=== PATIENT | male | born 1950 | race American Indian/Alaskan Native ===

== ENCOUNTER 2016-09-07 20:34 | Observation (INO) | payer MEDICAID ==
[2016-09-07 20:47] VITALS: BMI 29.5
--- NOTE | 2016-09-07 21:07 | ED PDOC ---
Arrival/HPI - General Chief Complaint: Shortness Of Breath Time Seen by Provider: 09/07/16 20:37 Historian: Patient - History of Present Illness Narrative History of Present Illness (Text): 09/07/16 21:07 Misael King is a 66 year old male, whose past medical history includes hyperlipidemia, who presents to the emergency department complaining of intermittent right-sided chest discomfort today. Patient also reports associated shortness of breath. Patient denies any family history of cardiac disease. Patient denies any history of tobacco abuse, ever, chills, abdominal pain, nausea, vomiting, diarrhea, back pain, neck pain, headache, dizziness, or any other complaints. PMD: Dr. Gaudencio Calero Time/Duration: Other (today) Symptom Onset: Gradual Symptom Course: Unchanged, Intermittent Activities at Onset: Rest, Light Context: Home Past Medical History - Provider Review Nursing Documentation Reviewed: Yes - Infectious Disease Hx of Infectious Diseases: None - Cardiac Hx Cardiac Disorders: Yes - Pulmonary Hx Respiratory Disorders: No - Neurological Hx Neurological Disorder: No - HEENT Hx HEENT Disorder: No - Renal Hx Renal Disorder: No - Endocrine/Metabolic Hx Endocrine Disorders: No - Hematological/Oncological Hx Blood Disorders: No - Integumentary Hx Dermatological Disorder: No - Musculoskeletal/Rheumatological Hx Musculoskeletal Disorders: Yes - Gastrointestinal Hx Gastrointestinal Disorders: No - Genitourinary/Gynecological Hx Genitourinary Disorders: No - Psychiatric Hx Psychophysiologic Disorder: No Hx Substance Use: No - Surgical History Hx Gastric Bypass Surgery: No - Anesthesia Hx Anesthesia: No Hx Anesthesia Reactions: No Hx Malignant Hyperthermia: No - Suicidal Assessment Feels Threatened In Home Enviroment: No Family/Social History - Physician Review Nursing Documentation Reviewed: Yes Family/Social History: No Known Family HX Smoking Status: Never Smoked Hx Alcohol Use: No Hx Substance Use: No Hx Substance Use Treatment: No Allergies/Home Meds Allergies/Adverse Reactions: Allergies No Known Allergies Allergy (Verified 08/17/15 17:35) Review of Systems - Physician Review All systems were reviewed & negative as marked: Yes - Review of Systems Constitutional: Normal. absent: Fevers Eyes: Normal ENT: Normal Respiratory: SOB. absent: Cough Cardiovascular: Chest Pain Gastrointestinal: Normal. absent: Abdominal Pain, Diarrhea, Nausea, Vomiting Genitourinary Male: Normal. absent: Dysuria, Frequency, Hematuria, Urinary Output Changes Musculoskeletal: Normal. absent: Back Pain, Neck Pain Skin: Normal. absent: Rash Neurological: Normal. absent: Headache, Dizziness Endocrine: Normal Hemo/Lymphatic: Normal Psychiatric: Normal Physical Exam Vital Signs Reviewed: Yes Vital Signs Temp Pulse Resp BP Pulse Ox 09/07/16 23:43 89 16 179/84 H 99 09/07/16 20:50 98.2 F 90 18 183/92 H 98 Temperature: Afebrile Blood Pressure: Hypertensive Pulse: Regular Respiratory Rate: Normal Appearance: Positive for: Well-Appearing, Non-Toxic, Comfortable Pain Distress: None Mental Status: Positive for: Alert and Oriented X 3 - Systems Exam Head: Present: Atraumatic, Normocephalic Pupils: Present: PERRL Extroacular Muscles: Present: EOMI Conjunctiva: Present: Normal Mouth: Present: Moist Mucous Membranes Neck: Present: Normal Range of Motion Respiratory/Chest: Present: Clear to Auscultation, Good Air Exchange. No: Respiratory Distress, Accessory Muscle Use Cardiovascular: Present: Regular Rate and Rhythm, Normal S1, S2. No: Murmurs Abdomen: Present: Normal Bowel Sounds. No: Tenderness, Distention, Peritoneal Signs Back: Present: Normal Inspection Upper Extremity: Present: Normal Inspection. No: Cyanosis, Edema Lower Extremity: Present: Normal Inspection. No: Edema Neurological: Present: GCS=15, CN II-XII Intact, Speech Normal Skin: Present: Warm, Dry, Normal Color. No: Rashes Psychiatric: Present: Alert, Oriented x 3, Normal Insight, Normal Concentration Medical Decision Making ED Course and Treatment: 09/07/16 21:07 Impression: 66 year old male complaining of intermittent right-sided chest discomfort and shortness of breath since this morning. Plan: -- EKG -- CXR -- Labs, cardiac enzymes -- Reassess and disposition Prior Visits: Notes and results from previous visits were reviewed. Progress Notes: Reviewed EKG, NSR at 93 bpm. Possible anterior infarct. Non-specific ST/T wave changes. 09/07/16 22:49 Reviewed radiology, CXR shows no active disease. 09/07/16 23:44 Case discussed with medical director occupational health electronic tester, who is aware and agrees with plan. Paged house physician. 09/07/16 23:[address] Gray, who is aware and agrees with plan. Accepts pt in to hospitalist service. Pt will go to Telemetry observation for chest pain. - Lab Interpretations Lab Results: 09/07/16 21:19 09/07/16 21:19 Lab Results 09/07/16 21:19: WBC 6.4, RBC 5.15, Hgb 14.5, Hct 42.5, MCV 82.5, MCH 28.2, MCHC 34.1, RDW 14.9 H, Plt Count 335, MPV 10.1 09/07/16 21:19: Sodium 139, Potassium 4.8, Chloride 99, Carbon Dioxide 31, Anion Gap 14, BUN 18, Creatinine 0.9, Est GFR ( Amer) > 60, Est GFR (Non- Af Amer) > 60, Random Glucose 122 H, Calcium 9.5, Total Bilirubin 0.7, AST 40, ALT 42, Alkaline Phosphatase 111, Lactate Dehydrogenase 491, Total Creatine Kinase 95, Troponin I < 0.01, Total Protein 8.3, Albumin 4.1, Globulin 4.2, Albumin/Globulin Ratio 1.0 L 09/07/16 21:19: PT 10.0, INR 0.93, APTT 25.7 I have reviewed the lab results: Yes - RAD Interpretation Radiology Orders: 09/07/16 21:08 CHEST PORTABLE [RAD] Stat Wellhead Pumper: ED Physician - EKG Interpretation Interpreted by ED Physician: Yes Type: 12 lead EKG - Medication Orders Current Medication Orders: Discontinued Medications Aspirin (Aspirin) 325 mg PO ONCE STA Stop: 09/07/16 23:40 Nitroglycerin (Nitro-Bid 2% Oint) 1 ea TOP ONCE STA Stop: 09/07/16 23:41 - Scribe Statement The provider has reviewed the documentation as recorded by the Yanna Lang Provider Attestation: All medical record entries made by the Yanna were at my direction and personally dictated by me. I have reviewed the chart and agree that the record accurately reflects my personal performance of the history, physical exam, medical decision making, and the department course for this patient. I have also personally directed, reviewed, and agree with the discharge instructions and disposition. Disposition/Present on Arrival - Present on Arrival Any Indicators Present on Arrival: No History of DVT/PE: No History of Uncontrolled Diabetes: No Urinary Catheter: No History of Decub. Ulcer: No History Surgical Site Infection Following: None - Disposition Have Diagnosis and Disposition been Completed?: Yes Diagnosis: Chest pain Disposition: HOSPITALIZED Disposition Time: 23:55 Patient Plan: Observation Condition: STABLE Discharge Instructions (ExitCare): Chest Pain (ED)
[2016-09-07 21:51] LABS: HEMATOCRIT 42.5 % (42.0-52.0); MEAN CELL VOLUME 82.5 fL (80.0-105.0); MEAN CORPUSCULAR HEMOGLOBIN 28.2 pg (25.0-35.0); MEAN CORPUSCULAR HGB CONC 34.1 g/dl (31.0-37.0); MEAN PLATELET VOLUME 10.1 fl (7.0-11.0); RED CELL DISTRIBUTION WIDTH 14.9 % (11.5-14.5); WHITE BLOOD COUNT 6.4 10^3/ul (4.5-11.0)
[2016-09-07 21:56] LABS: ALKALINE PHOSPHATASE 111 U/L (38-133); ALT/SGPT 42 U/L (7-56); AST/SGOT 40 U/L (15-59); BILIRUBIN,TOTAL 0.7 mg/dL (0.2-1.3); BLOOD UREA NITROGEN 18 mg/dL (7-21); CALCIUM 9.5 mg/dL (8.4-10.5); CARBON DIOXIDE 31 mmol/L (21-33); CHLORIDE 99 mmol/L (98-107); GFR AFRICAN-AMERICAN > 60; GLUCOSE,RANDOM 122 mg/dL (70-110); POTASSIUM 4.8 mmol/L (3.6-5.0); SODIUM 139 mmol/L (132-148); TOTAL PROTEIN 8.3 g/dL (5.8-8.3)
[2016-09-07 22:07] LABS: TROPONIN I < 0.01 ng/mL
[2016-09-07 22:14] LABS: INR 0.93 (0.93-1.08); PARTIAL THROMBOPLASTIN TIME 25.7 Seconds (23.7-30.8)
[2016-09-07] MEDS ORDERED: Nitroglycerin 2% Ointment Foilpak UD TOP STA (23:40)
--- NOTE | 2016-09-08 00:47 | CP.PCM.HP ---
<Ronald Singer - Last Filed: 09/08/16 00:41> History of Present Illness - History of Present Illness History of Present Illness: Ronald Singer D.O. PGY-1, Internal Medicine Resident, Night Float Admission CC: chest pain for 1 day 66 year old male with a PMH of urination problems secondary to pelvis fracture who presents to [facility] on 09/08/16 with complaints of chest pain since earlier today. Patient states that yesterday he had some discomfort which he states "is from my high cholesterol" and he went to lay down to feel better. Patient notes a similar sensation today but also noted shortness of breath and points to his right chest wall as the location. Patient states the pain is localized, mild, only comes when pressing down on the area, not attributed with any radiation to arms, jaw, not associated with nausea, vomiting, or other symptoms. PMH: as above PSH: pelvic fracture repair SH: denies smoking, social drinking mostly in his 20s, denies drug use FH: father had HTN, mother of natural causes Meds: reviewed Allergies: NKA Present on Admission - Present on Admission Any Indicators Present on Admission: No Review of Systems - Constitutional Constitutional: absent: Anorexia, Chills, Fever - EENT Eyes: absent: Blind Spots, Blurred Vision, Change in Vision Ears: absent: Decreased Hearing, Ear Discharge, Ear Pain Nose/Mouth/Throat: absent: Epistaxis, Nasal Congestion, Nasal Discharge - Cardiovascular Cardiovascular: Chest Pain, Dyspnea, Palpitations. absent: Diaphoresis - Respiratory Respiratory: Dyspnea. absent: Cough, Wheezing - Gastrointestinal Gastrointestinal: absent: Abdominal Pain, Constipation, Diarrhea, Nausea, Vomiting - Genitourinary Genitourinary: Difficulty Urinating - Musculoskeletal Musculoskeletal: absent: Abnormal Gait, Joint Swelling, Muscle Weakness - Integumentary Integumentary: absent: Pruritus, Rash, Sores - Neurological Neurological: absent: Abnormal Gait, Abnormal Hearing, Abnormal Movements Past Patient History - Infectious Disease Hx of Infectious Diseases: None - Past Social History Smoking Status: Never Smoked - CARDIAC Hx Cardiac Disorders: Yes - PULMONARY Hx Respiratory Disorders: No - NEUROLOGICAL Hx Neurological Disorder: No - HEENT Hx HEENT Problems: No - RENAL Hx Chronic Kidney Disease: No - ENDOCRINE/METABOLIC Hx Endocrine Disorders: No - HEMATOLOGICAL/ONCOLOGICAL Hx Blood Disorders: No - INTEGUMENTARY Hx Dermatological Problems: No - MUSCULOSKELETAL/RHEUMATOLOGICAL Hx Musculoskeletal Disorders: Yes - GASTROINTESTINAL Hx Gastrointestinal Disorders: No - GENITOURINARY/GYNECOLOGICAL Hx Genitourinary Disorders: No - PSYCHIATRIC Hx Psychophysiologic Disorder: No Hx Substance Use: No - SURGICAL HISTORY Hx Gastric Bypass Surgery: No - ANESTHESIA Hx Anesthesia: No Hx Anesthesia Reactions: No Hx Malignant Hyperthermia: No Meds Allergies/Adverse Reactions: Allergies Allergy/AdvReac Type Severity Reaction Status Date / Time No Known Allergies Allergy Verified 08/17/15 17:35 Physical Exam - Constitutional Additional comments: well developed, well nourished, pleasant Guayanese male in NAD - Head Exam Head Exam: ATRAUMATIC, NORMOCEPHALIC - Eye Exam Eye Exam: EOMI, PERRL. absent: Conjunctival injection, Scleral icterus - ENT Exam ENT Exam: Mucous Membranes Moist, Normal Oropharynx - Neck Exam Neck exam: Positive for: Full Rom. Negative for: Lymphadenopathy - Respiratory Exam Respiratory Exam: Clear to Auscultation Bilateral. absent: Rales, Rhonchi, Wheezes - Cardiovascular Exam Cardiovascular Exam: RRR, +S1, +S2. absent: Diastolic murmur, Gallop, Rubs, Systolic Murmur Additional comments: localized costochondral tenderness ~ribs 4-5 on right - GI/Abdominal Exam GI & Abdominal Exam: Normal Bowel Sounds, Soft. absent: Distended, Tenderness - Extremities Exam Extremities exam: Positive for: pedal pulses present. Negative for: calf tenderness, pedal edema, tenderness - Neurological Exam Neurological exam: Alert, CN II-XII Intact, Oriented x3 - Skin Skin Exam: Dry, Intact, Warm Results - Vital Signs Recent Vital Signs: Last Vital Signs Temp 98.2 F 09/07/16 20:50 Pulse 89 09/07/16 23:43 Resp 16 09/07/16 23:43 BP 179/84 H 09/07/16 23:43 Pulse Ox 99 09/07/16 23:43 - Labs Result Diagrams: 09/07/16 21:19 09/07/16 21:19 Assessment & Plan - Assessment and Plan (Free Text) Assessment: 66 year old male with a PMH of urination problems secondary to pelvis fracture who presents with complaints of chest pain since earlier today. Plan: 1. Chest pain Costochrondritis vs cardiac vs other etiology CXR reviewed by me, no appearance of infiltrate, pneumothorax or effusion Labs reviewed Trops negative x1, will trend Lipid panel ordered Vitals q4h Repeat EKG in the AM Started motrin 800 q8 Will follow 2. Hx pelvis fracture Continue home neurontin DVT ppx: SCDs Patient was seen and examined at bedside and case was discussed at length with attending physician. - Date & Time Date: 09/08/16 Time: 12:10 <Regina Gray - Last Filed: 09/08/16 02:30> Results - Vital Signs Recent Vital Signs: Last Vital Signs Temp 97.9 F 09/08/16 00:34 Pulse 95 H 09/08/16 00:34 Resp 20 09/08/16 00:34 BP 139/89 09/08/16 02:21 Pulse Ox 99 09/07/16 23:43 - Labs Result Diagrams: 09/07/16 21:19 09/07/16 21:19 Attending/Attestation - Attestation I have personally seen and examined this patient.: Yes I have fully participated in the care of the patient.: Yes I have reviewed all pertinent clinical information: Yes Notes (Text): 09/08/16 02:29 Patient was seen when he was in bed # 4 in the ER. Agree with history , physical examination , assessment and plan.
[2016-09-08] MEDS ORDERED: DiphenhydrAMINE 50 mg/ml Inj IVP STA (02:38)
[2016-09-08 04:02] LABS: CHOLESTEROL 197 mg/dL (130-200)
[2016-09-08 04:44] LABS: TROPONIN I < 0.01 ng/mL
--- NOTE | 2016-09-08 07:21 | RAD ---
HISTORY: sob COMPARISON: Comparison is made to 08/17/2015 FINDINGS: LUNGS: No active pulmonary disease. PLEURA: No significant pleural effusion identified, no pneumothorax apparent. CARDIOVASCULAR: Normal. OSSEOUS STRUCTURES: No significant abnormalities. VISUALIZED UPPER ABDOMEN: Normal. OTHER FINDINGS: None. IMPRESSION: No active disease.
--- NOTE | 2016-09-08 09:32 | CARD ---
APPROVED REPORT EKG Measurement Heart [id number] <Conclusion> Normal sinus rhythm QS pattren V 1 - V 3 Possible ASMI, age unknown LVH by voltage
--- NOTE | 2016-09-08 10:23 | CARD ---
APPROVED REPORT EKG Measurement Heart [id number] <Conclusion> Normal sinus rhythm Cannot rule out Anterior infarct, age undetermined Abnormal ECG
--- NOTE | 2016-09-08 13:37 | CON ---
DATE: 09/08/2016 REASON FOR CONSULTATION: Dizziness and fall. The patient is a poor historian. The patient is a 66-year-old male who has a history of hyperlipidem ia, presented because of right-sided sharp chest discomfort as well as dizziness and a fall in front of his house at the sidewalk on his right knee. The patient denies any loss of consciousness. The p atient is unaware of any history of stroke or heart attack in the past. SOCIAL HISTORY: The patient is a nonsmoker. MEDICATIONS: Ibuprofen 800 mg q. 8 hours, Neurontin 300 mg t.i.d. REVIEW OF SYSTEMS: No nausea or vomiting, no fever or chills. PAST MEDICAL HISTORY: No history of heart attack or stroke in the past. PHYSICAL EXAMINATION: GENERAL: The patient is a middle-aged male who does not appear to be in any distress. VITAL SIGNS: Blood pressure /89, heart rate 97, temperature 98.1, respiration 20. HEENT: Normocephalic. NECK: No JVD. CHEST: Clear. HEART: S1, S2 regular. EXTREMITIES: No edema. EKG revealed sinus rhythm, cannot rule out old anterior wall myocardial infarction. LABORATORIES: SMA-7 is within normal limits except for glucose of 122. Three sets of troponins are negative. Lipid profile is within normal limits. CBC is within normal limits except for RDW of 14.9 . PT, PTT and D-dimer are within normal limits. ASSESSMENT: 1. Dizziness and a fall. 2. History of hyperlipidemia. RECOMMENDATIONS: Case was discussed with the emergency medical technician basic. The patient will be scheduled for head CT scan without contrast as well as an echocardiogram. Anthony Watkins MD cc: [id number] TT: 09/08/2016 13:36:44 Confirmation # [id number] Dictation # [id number]
--- NOTE | 2016-09-08 14:00 | CT ---
PROCEDURE: CT HEAD WITHOUT CONTRAST. HISTORY: Dizziness COMPARISON: 05/08/2013 TECHNIQUE: Axial computed tomography images were obtained through the head/brain without intravenous contrast. Radiation dose: Total exam DLP = 756 mGy-cm. This CT exam was performed using one or more of the following dose reduction techniques: Automated exposure control, adjustment of the mA and/or kV according to patient size, and/or use of iterative reconstruction technique. FINDINGS: HEMORRHAGE: No intracranial hemorrhage. BRAIN: No mass effect or edema. No atrophy or chronic microvascular ischemic changes. VENTRICLES: Unremarkable. No hydrocephalus. CALVARIUM: Unremarkable. PARANASAL SINUSES: Unremarkable as visualized. No significant inflammatory changes. MASTOID AIR CELLS: Unremarkable as visualized. No inflammatory changes. OTHER FINDINGS: None. IMPRESSION: Normal CT of the Head.
[2016-09-08 23:49] VITALS: TEMP 98
[2016-09-09 06:07] VITALS: O2SAT 94
[2016-09-09 12:47] VITALS: BP 127/98; RESP 20
--- NOTE | 2016-09-09 13:47 | CP.PCM.DIS ---
<Luis Huggins - Last Filed: 09/09/16 15:04> Provider - Provider Date of Admission: 09/07/16 23:55 Attending physician: Jung Grijalva MD Primary care physician: Zena Consults: Cardio: Roland Time Spent in preparation of Discharge (in minutes): 45 Hospital Course - Lab Results Lab Results: Most Recent Lab Values WBC 6.4 10^3/ul (4.5-11.0) 09/07/16 21:19 RBC 5.15 10^6/uL (3.5-6.1) 09/07/16 21:19 Hgb 14.5 gm/dL (14.0-18.0) 09/07/16 21:19 Hct 42.5 % (42.0-52.0) 09/07/16 21:19 MCV 82.5 fL (80.0-105.0) 09/07/16 21:19 MCH 28.2 pg (25.0-35.0) 09/07/16 21:19 MCHC 34.1 g/dl (31.0-37.0) 09/07/16 21:19 RDW 14.9 % (11.5-14.5) H 09/07/16 21:19 Plt Count 335 10^3/uL (120.0-450.0) 09/07/16 21:19 MPV 10.1 fl (7.0-11.0) 09/07/16 21:19 PT 10.0 Seconds (9.9-11.8) 09/07/16 21:19 INR 0.93 (0.93-1.08) 09/07/16 21:19 APTT 25.7 Seconds (23.7-30.8) 09/07/16 21:19 D-Dimer, Quantitative 0.23 mg/L FEU (0-0.50) 09/08/16 12:15 Sodium 139 mmol/L (132-148) 09/07/16 21:19 Potassium 4.8 mmol/L (3.6-5.0) 09/07/16 21:19 Chloride 99 mmol/L (98-107) 09/07/16 21:19 Carbon Dioxide 31 mmol/L (21-33) 09/07/16 21:19 Anion Gap 14 (10-20) 09/07/16 21:19 BUN 18 mg/dL (7-21) 09/07/16 21:19 Creatinine 0.9 mg/dL (0.5-1.4) 09/07/16 21:19 Est GFR ( Amer) > 60 09/07/16 21:19 Est GFR (Non-Af Amer) > 60 09/07/16 21:19 Random Glucose 122 mg/dL (70-110) H 09/07/16 21:19 Calcium 9.5 mg/dL (8.4-10.5) 09/07/16 21:19 Total Bilirubin 0.7 mg/dL (0.2-1.3) 09/07/16 21:19 AST 40 U/L (15-59) 09/07/16 21:19 ALT 42 U/L (7-56) 09/07/16 21:19 Alkaline Phosphatase 111 U/L (38-133) 09/07/16 21:19 Lactate Dehydrogenase 491 U/L (333-699) 09/07/16 21:19 Total Creatine Kinase 95 U/L (35-230) 09/07/16 21:19 Troponin I < 0.01 ng/mL 09/08/16 09:15 Total Protein 8.3 g/dL (5.8-8.3) 09/07/16 21:19 Albumin 4.1 g/dL (3.0-4.8) 09/07/16 21:19 Globulin 4.2 gm/dL 09/07/16 21:19 Albumin/Globulin Ratio 1.0 (1.1-1.8) L 09/07/16 21:19 Triglycerides 132 mg/dL (35-160) 09/08/16 03:30 Cholesterol 197 mg/dL (130-200) 09/08/16 03:30 LDL Cholesterol Direct 115 mg/dL (0-129) 09/08/16 03:30 HDL Cholesterol 38 mg/dL (29-60) 09/08/16 03:30 - Hospital Course Hospital Course: Upon Admission: 66yo M with PMHx of Pelvis fracture with secondary urinary problems here for evaluation of Chest pain. Chest pain is on the right side of the chest and is reproducible. Patient also c/o Dyspnea on exertion. ACS was ruled out with serial troponins. No EKG changes seen. D-dimer was negative. ECHO unremarkable. Patient also states that he had an episode of dizziness and fell a few weeks back. CT Head was done during this hospital stay and was unremarkable. Patient' s BP was elevated throughout his hospital stay, however, patient insisted that this was due to being in the hospital setting and states that he checks his BP regularly at home and it is within normal limits. Patient was recommended to keep a log of all his BP measurements at home and bring in to his PCP for further recommendations. Patient also states that he was given an unknown BP medication by his PCP, however, he does not take it as his BP is within normal limits at home. Patient agrees to follow up with his PMD within 3 days. 1. Atypical Chest Pain; ACS ruled out. D-dimer negative 2. Dizziness; CT head negative 3. Hx of Pelvic Fx; Continue out-patient pain management followup. Upon Discharge: Patient is cleared for discharge as per Dr. Grijalva 1. Follow up with your Primary care physician in 2-3 days 2. Keep a track of your BP readings at home and bring into your Primary Care Physician 3. Decrease dose of Gabapentin to 300mg PO BID. Follow PCP recs for further management 4. Follow up with your Pain management doctor 5. Follow up with Neurology. Call for appointment 6. Return to the ER with any concerning symptoms No New prescriptions Discharge Exam - Head Exam Head Exam: ATRAUMATIC, NORMAL INSPECTION, NORMOCEPHALIC - Eye Exam Eye Exam: EOMI, Normal appearance. absent: Scleral icterus - ENT Exam ENT Exam: Mucous Membranes Moist - Respiratory Exam Respiratory Exam: Clear to PA & Lateral, NORMAL BREATHING PATTERN, UNREMARKABLE. absent: Rales, Rhonchi, Wheezes, Respiratory Distress - Cardiovascular Exam Cardiovascular Exam: RRR, +S1, +S2. absent: JVD - GI/Abdominal Exam GI & Abdominal Exam: Normal Bowel Sounds, Unremarkable. absent: Distended, Firm , Guarding - Extremities Exam Extremities exam: normal inspection - Back Exam Back exam: NORMAL INSPECTION - Neurological Exam Neurological exam: Alert, Oriented x3 - Psychiatric Exam Psychiatric exam: Normal Affect, Normal Mood - Skin Skin Exam: Dry, Intact, Normal Color, Warm Discharge Plan - Follow Up Plan Condition: STABLE Disposition: HOME/ ROUTINE Instructions: Chest Pain (DC), Chest Pain (GEN) Additional Instructions: PT is cleared for discharge as per Dr. Grijalva 1. Follow up with your Primary care physician in 2-3 days 2. Keep a track of your BP readings at home and bring into your Primary Care Physician 3. Decrease dose of Gabapentin to 300mg PO BID. Follow PCP recs for further management 4. Follow up with your Pain management doctor 5. Follow up with Neurology. Call for appointment 6. Return to the ER with any concerning symptoms No New prescriptions Referrals: Isaiah Lane MD [Staff Provider] - <Jung Grijalva - Last Filed: 09/09/16 16:08> Provider - Provider Date of Admission: 09/07/16 23:55 Attending physician: Jung Grijalva MD Hospital Course - Lab Results Lab Results: Most Recent Lab Values WBC 6.4 10^3/ul (4.5-11.0) 09/07/16 21:19 RBC 5.15 10^6/uL (3.5-6.1) 09/07/16 21:19 Hgb 14.5 gm/dL (14.0-18.0) 09/07/16 21:19 Hct 42.5 % (42.0-52.0) 09/07/16 21:19 MCV 82.5 fL (80.0-105.0) 09/07/16 21:19 MCH 28.2 pg (25.0-35.0) 09/07/16 21:19 MCHC 34.1 g/dl (31.0-37.0) 09/07/16 21:19 RDW 14.9 % (11.5-14.5) H 09/07/16 21:19 Plt Count 335 10^3/uL (120.0-450.0) 09/07/16 21:19 MPV 10.1 fl (7.0-11.0) 09/07/16 21:19 PT 10.0 Seconds (9.9-11.8) 09/07/16 21:19 INR 0.93 (0.93-1.08) 09/07/16 21:19 APTT 25.7 Seconds (23.7-30.8) 09/07/16 21:19 D-Dimer, Quantitative 0.23 mg/L FEU (0-0.50) 09/08/16 12:15 Sodium 139 mmol/L (132-148) 09/07/16 21:19 Potassium 4.8 mmol/L (3.6-5.0) 09/07/16 21:19 Chloride 99 mmol/L (98-107) 09/07/16 21:19 Carbon Dioxide 31 mmol/L (21-33) 09/07/16 21:19 Anion Gap 14 (10-20) 09/07/16 21:19 BUN 18 mg/dL (7-21) 09/07/16 21:19 Creatinine 0.9 mg/dL (0.5-1.4) 09/07/16 21:19 Est GFR ( Amer) > 60 09/07/16 21:19 Est GFR (Non-Af Amer) > 60 09/07/16 21:19 Random Glucose 122 mg/dL (70-110) H 09/07/16 21:19 Calcium 9.5 mg/dL (8.4-10.5) 09/07/16 21:19 Total Bilirubin 0.7 mg/dL (0.2-1.3) 09/07/16 21:19 AST 40 U/L (15-59) 09/07/16 21:19 ALT 42 U/L (7-56) 09/07/16 21:19 Alkaline Phosphatase 111 U/L (38-133) 09/07/16 21:19 Lactate Dehydrogenase 491 U/L (333-699) 09/07/16 21:19 Total Creatine Kinase 95 U/L (35-230) 09/07/16 21:19 Troponin I < 0.01 ng/mL 09/08/16 09:15 Total Protein 8.3 g/dL (5.8-8.3) 09/07/16 21:19 Albumin 4.1 g/dL (3.0-4.8) 09/07/16 21:19 Globulin 4.2 gm/dL 09/07/16 21:19 Albumin/Globulin Ratio 1.0 (1.1-1.8) L 09/07/16 21:19 Triglycerides 132 mg/dL (35-160) 09/08/16 03:30 Cholesterol 197 mg/dL (130-200) 09/08/16 03:30 LDL Cholesterol Direct 115 mg/dL (0-129) 09/08/16 03:30 HDL Cholesterol 38 mg/dL (29-60) 09/08/16 03:30 Attending/Attestation - Attestation I have personally seen and examined this patient.: Yes I have fully participated in the care of the patient.: Yes I have reviewed all pertinent clinical information, including history, physical exam and plan: Yes Notes (Text): 09/09/16 16:02 66 year old male with past medical history of pelvic fracture and ?hypertension who presented with complaint of chest pain with dyspnea on exertion. He also complains of recent fall. He was admitted to telemetry unit. Serial cardiac enzymes were negative and ACS was ruled out. D-dimer and CXR were negative. He had an echocardiogram today which was reviewed by the chuck splitter. He also had a CT head which was negative. He was seen by PT and able to ambulate without complaints. He is discharged home today to follow up with his pmd. Taper gabapentin as per pmd/neurology as outpatient. Monitor BP at home. States he does want to start a antihypertension at this time because he takes a pill at home. Jung Grijalva MD Hospitalist.
[2016-09-09 14:13] VITALS: PULSE 96
--- NOTE | 2016-09-09 17:54 | CARD ---
APPROVED REPORT EXAM: Two-dimensional and M-mode echocardiogram with Doppler and color Doppler. INDICATION CP/LVFX 2D DIMENSIONS Left Atrium (2D)4.2 (1.6-4.0cm)IVSd1.4 (0.7-1.1cm) LVDd4.3 (3.9-5.9cm)PWd1.5 (0.7-1.1cm) LVDs3.0 (2.5-4.0cm)FS (%) 29.9 % LVEF (%)57.4 (>50%) M-Mode DIMENSIONS Aortic Root3.20 (2.2-3.7cm)Aortic Cusp Exc.2.10 (1.5-2.0cm) Aortic Valve AoV Peak Cjkybdfq039.0cm/Lea Peak GR.5mmHg Mitral Valve MV E Srnhpqxv29.8cm/sMV A Dmcehrfa10.0cm/sE/A ratio0.7 TDI Lateral E' Peak V6.43cm/sMedial E' Peak V3.80cm/sE/Lateral E'8.4 E/Medial E'14.2 Pulmonary Valve PV Peak Ftnnsati92.4cm/sPV Peak Grad.3mmHg Tricuspid Valve TR Peak [id number]/sRAP [id number] Peak Gr.25mmHg [id number] LEFT VENTRICLE The left ventricle is normal size. There is mild concentric left ventricular hypertrophy. The left ventricular function is normal. The left ventricular ejection fraction is within the normal range. There is normal LV segmental wall motion. RIGHT VENTRICLE The right ventricle is normal size. The right ventricular systolic function is normal. ATRIA The left atrium is mildly dilated. The right atrium size is normal. The interatrial septum is intact with no evidence for an atrial septal defect. AORTIC VALVE The aortic valve is normal in structure. No aortic regurgitation is present. There is no aortic valvular stenosis. MITRAL VALVE Mitral regurgitation is mild. Miild mitral valve prolapse is present. TRICUSPID VALVE The tricuspid valve is normal in structure. There is mild tricuspid regurgitation. PULMONIC VALVE The pulmonary valve is normal in structure. GREAT VESSELS The aortic root is normal in size. The IVC is normal in size and collapses >50% with inspiration. PERICARDIAL EFFUSION There is no pleural effusion. There is no pericardial effusion. <Conclusion> Dilated LA. Normal LV size and systolic function. Mild concentric LVH. Mild MVP seen. Mild MR.
== END 2016-09-09 16:05 | disposition home or self-care (01) ==
LOC: ED 20:34 → ERH 23:55 → 2RNO 09-08 01:16
PROVIDERS: ADMIT Internal Medicine; ATTEND Internal Medicine
DX: R07.89 Other chest pain (principal); E78.5 Hyperlipidemia, unspecified; R42 Dizziness and giddiness; Z82.49 Family history of ischemic heart disease and other diseases of the circulatory system; Z87.81 Personal history of (healed) traumatic fracture
CPT/HCPCS: 36415; 70450; 71010; 80053; 80061; 82550; 83615; 84484; 85027; 85378; 85610; 85730; 93005; 93306; 97116; 97162; 99285; G0378; G8978; G8979; G8980; J1200

== ENCOUNTER 2017-01-08 08:48 | Inpatient (IN) | payer MEDICAID ==
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
--- NOTE | 2017-01-08 11:57 | RAD ---
HISTORY: right sided chest pain COMPARISON: No prior. FINDINGS: LUNGS: No active pulmonary disease. PLEURA: No significant pleural effusion identified, no pneumothorax apparent. CARDIOVASCULAR: Mild cardiomegaly OSSEOUS STRUCTURES: No significant abnormalities. VISUALIZED UPPER ABDOMEN: Normal. OTHER FINDINGS: None. IMPRESSION: No active disease.
[2017-01-08 12:05] LABS: BASO # 0.02 K/mm3 (0.0-2.0); BASO % 0.3 % (0.0-3.0); EOS # 0.1 (0.0-0.7); EOS % 1.6 % (1.5-5.0); GRAN # 3.96 (1.4-6.5); GRAN % 59.4 % (50.0-68.0); HEMATOCRIT 40.6 % (42.0-52.0); LYMPH % 30.2 % (22.0-35.0); MEAN CELL VOLUME 85.3 fl (80.0-105.0); MEAN CORPUSCULAR HEMOGLOBIN 28.2 pg (25.0-35.0); MEAN PLATELET VOLUME 9.5 fl (7.0-11.0); MONO # 0.6 (0.1-0.6); MONO % 8.5 % (1.0-6.0); RED CELL DISTRIBUTION WIDTH 15.1 % (11.5-14.5); WHITE BLOOD COUNT 6.7 10^3/ul (4.5-11.0)
[2017-01-08 12:13] LABS: ALB/GLOB RATIO 0.9 (1.1-1.8); ALKALINE PHOSPHATASE 104 U/L (38-126); ALT/SGPT 29 U/L (7-56); AST/SGOT 91 U/L (17-59); BILIRUBIN,TOTAL 0.4 mg/dL (0.2-1.3); BLOOD UREA NITROGEN 10 mg/dL (7-21); CALCIUM 8.8 mg/dL (8.4-10.5); CARBON DIOXIDE 33 mmol/L (21-33); CHLORIDE 104 mmol/L (98-107); GFR AFRICAN-AMERICAN > 60; GLUCOSE,RANDOM 97 mg/dL (70-110); POTASSIUM 4.4 mmol/L (3.6-5.0); SODIUM 142 mmol/L (132-148); TOTAL PROTEIN 7.4 g/dL (5.8-8.3)
[2017-01-08 12:26] LABS: TROPONIN I 5.37 ng/mL
[2017-01-08] MEDS ORDERED: Enoxaparin 100 mg Syringe SC STA (13:14)
--- NOTE | 2017-01-08 13:26 | CARD ---
APPROVED REPORT EKG Measurement Heart [id number] <Conclusion> Normal sinus rhythm Septal infarct, age undetermined Abnormal ECG
[2017-01-08 16:15] VITALS: BMI 28.0
[2017-01-08] MEDS ORDERED: Pneumococcal 23-Valent Vaccine IM ONE (16:15)
[2017-01-08] MEDS ORDERED: Lidocaine 2% Inj (20ml) ONE (17:36)
[2017-01-08] MEDS ORDERED: Iohexol 350mgl/ml 50 ML ONE (17:36)
[2017-01-08] MEDS ORDERED: Iohexol 350 MG/100 ML VIAL ONE (17:36)
[2017-01-08] MEDS ORDERED: Midazolam 2 MG/2 ML VIAL ONE (17:37)
--- NOTE | 2017-01-08 17:45 | CP.PCM.HP ---
<Celina Silva - Last Filed: 01/08/17 21:04> History of Present Illness - History of Present Illness History of Present Illness: Celina Silva DO, PGY-1, Hospitalist Service 66 year old male black male with a past medical history of pelvic fractures and secondary urinary retention who presents with a chief complaint of 4 days of right gum pain and intermittent right sided chest pain. The patient presents with his daughter, and he is not the best historian. He defines one episode in which he woke up with pain in right chest and ipsilateral neck, jaw, nose, and ear pain. On further probing, his daughter notes that he has been getting more short of breath with activity. Otherwise, the pain he complains of does not improve or worsen in relation to activity, and the patient cannot recollect any alleviating or exacerbating factors. The pain, however, this time has gone on for an unprecedented amount of time, and therefore he came to the ED. PMD: Luther Freitas PMH: Pelic fractures, urinary retention PSH: Denied Family History: father had hypertension, mother of natural causes at age 92 Allergies: NKDA Social: Worked on a [employer], never smoked, drank moderately in the past, lives alone, is a . Present on Admission - Present on Admission Any Indicators Present on Admission: No Review of Systems - Constitutional Constitutional: As Per HPI Past Patient History - Infectious Disease Hx of Infectious Diseases: None - Past Social History Smoking Status: Never Smoked - CARDIAC Hx Cardiac Disorders: Yes - PULMONARY Hx Respiratory Disorders: No - NEUROLOGICAL Hx Neurological Disorder: No - HEENT Hx HEENT Problems: No - RENAL Hx Chronic Kidney Disease: No - ENDOCRINE/METABOLIC Hx Endocrine Disorders: No - HEMATOLOGICAL/ONCOLOGICAL Hx Blood Disorders: No - INTEGUMENTARY Hx Dermatological Problems: No - MUSCULOSKELETAL/RHEUMATOLOGICAL Hx Musculoskeletal Disorders: Yes - GASTROINTESTINAL Hx Gastrointestinal Disorders: No - GENITOURINARY/GYNECOLOGICAL Hx Genitourinary Disorders: No - PSYCHIATRIC Hx Psychophysiologic Disorder: No Hx Substance Use: No - SURGICAL HISTORY Hx Gastric Bypass Surgery: No - ANESTHESIA Hx Anesthesia: No Hx Anesthesia Reactions: No Hx Malignant Hyperthermia: No Meds Allergies/Adverse Reactions: Allergies Allergy/AdvReac Type Severity Reaction Status Date / Time No Known Allergies Allergy Verified 01/08/17 14:53 Physical Exam - Constitutional Appears: Non-toxic, No Acute Distress - Head Exam Head Exam: ATRAUMATIC, NORMOCEPHALIC Additional comments: cheeks have rash - Eye Exam Eye Exam: EOMI, Normal appearance, PERRL - ENT Exam ENT Exam: Mucous Membranes Moist, Normal Oropharynx - Neck Exam Neck exam: Positive for: Normal Inspection - Respiratory Exam Respiratory Exam: Clear to Auscultation Bilateral, NORMAL BREATHING PATTERN - Cardiovascular Exam Cardiovascular Exam: Tachycardia, +S1, +S2 - GI/Abdominal Exam GI & Abdominal Exam: Normal Bowel Sounds, Soft. absent: Distended, Guarding - Extremities Exam Extremities exam: Positive for: normal inspection. Negative for: calf tenderness, full ROM, pedal edema Additional comments: extremities were cold - Back Exam Back exam: NORMAL INSPECTION. absent: CVA tenderness (L), CVA tenderness (R) - Neurological Exam Neurological exam: Alert, CN II-XII Intact, Oriented x3 - Psychiatric Exam Psychiatric exam: Normal Affect, Normal Mood - Skin Skin Exam: Dry, Intact, Normal Color Results - Vital Signs Recent Vital Signs: Last Vital Signs Temp 98.2 F 01/08/17 15:51 Pulse 80 01/08/17 15:51 Resp 18 01/08/17 15:51 BP 144/85 01/08/17 15:51 Pulse Ox 99 01/08/17 09:05 - Labs Result Diagrams: 01/08/17 11:20 01/08/17 11:43 Assessment & Plan - Assessment and Plan (Free Text) Assessment: 66 year old black male with atypical chest pain found to have t-wave changes in V2-V4 and troponin I of 5.37. Plan: (N)STEMI: V2-V4 T-waves demonstrate elevation - Troponin 5.37 - CXR read as normal - Lipid panel ordered -TSH ordered - HgbA1c ordered - Aspirin, plavix, metoprolol 25 BID starting in morning - See ED note for initial medications given, including those pre-left heart catherization. -Dr. Long consulted, patient scheduled for left heart cath tonight - Date & Time Date: 01/08/17 Time: 15:00 <Jung Grijalva - Last Filed: 01/09/17 11:43> Results - Vital Signs Recent Vital Signs: Last Vital Signs Temp 98.2 F 01/09/17 05:52 Pulse 85 09/08/17 09:21 Resp 20 01/09/17 05:52 BP 153/86 H 01/09/17 09:21 Pulse Ox 97 01/09/17 05:52 - Labs Result Diagrams: 01/09/17 03:40 01/09/17 03:40 Labs: Laboratory Results - last 24 hr 01/08/17 01/09/17 01/09/17 21:10 03:40 03:40 WBC 6.2 RBC 4.24 Hgb 12.0 L Hct 36.0 L MCV 84.9 MCH 28.3 MCHC 33.3 RDW 15.2 H Plt Count 266 MPV 9.5 Gran % 63.5 Lymph % (Auto) 26.1 [place] % (Auto) 8.9 H Eos % (Auto) 1.3 L Baso % (Auto) 0.2 Gran # 3.93 Lymph # 1.6 [place] # 0.6 Eos # 0.1 Baso # 0.01 Sodium Potassium Chloride Carbon Dioxide Anion Gap BUN Creatinine Est GFR ( Amer) Est GFR (Non-Af Amer) Random Glucose Calcium Phosphorus Magnesium Total Bilirubin AST ALT Alkaline Phosphatase Lactate Dehydrogenase Total Creatine Kinase CK-MB (CK-2) CK-MB (CK-2) % Troponin I 16.70 H* D Total Protein Albumin Globulin Albumin/Globulin Ratio Triglycerides Cholesterol LDL Cholesterol Direct HDL Cholesterol TSH 3rd Generation 1.37 01/09/17 03:40 WBC RBC Hgb Hct MCV MCH MCHC RDW Plt Count MPV Gran % Lymph % (Auto) [place] % (Auto) Eos % (Auto) Baso % (Auto) Gran # Lymph # [place] # Eos # Baso # Sodium 138 Potassium 3.7 Chloride 103 Carbon Dioxide 30 Anion Gap 9 L BUN 9 Creatinine 0.8 Est GFR ( Amer) > 60 Est GFR (Non-Af Amer) > 60 Random Glucose 137 H Calcium 8.0 L Phosphorus 3.0 Magnesium 1.9 Total Bilirubin 0.3 AST 82 H ALT 27 Alkaline Phosphatase 91 Lactate Dehydrogenase 801 H Total Creatine Kinase 380 H CK-MB (CK-2) 11.8 H CK-MB (CK-2) % 3.1 H Troponin I 10.30 H* D Total Protein 6.4 Albumin 3.1 Globulin 3.3 Albumin/Globulin Ratio 0.9 L Triglycerides 173 H Cholesterol 202 H LDL Cholesterol Direct 150 H HDL Cholesterol 28 L TSH 3rd Generation Attending/Attestation - Attestation I have personally seen and examined this patient.: Yes I have fully participated in the care of the patient.: Yes I have reviewed all pertinent clinical information: Yes Notes (Text): 01/08/17 66 year old male with past medical history of pelvic fracture who presented with jaw pain and right sided chest pain. He was found to have mild ST elevations at V2-V4 and elevated troponin. Will admit for ACS. Aspirin, plavix and lovenox given. Will start statin and BB. Lipid panel and echo is ordered. Cardiology evaluation for cardiac cath today. Jung Grijalva MD Hospitalist.
[2017-01-08] MEDS ORDERED: Nitroglycerin 50mg in D5W 0 MG/0 ML BOTTLE IV ONE (17:51)
[2017-01-08] MEDS ORDERED: Phenylephrine 10 mg/ml Inj ONE (17:51)
[2017-01-08] MEDS ORDERED: Eptifibatide 20 mg/10mL Inj IVP ONE (18:13)
[2017-01-08] MEDS ORDERED: Sodium Chloride 0.9% 1,000 ML IV SCH (18:30)
--- NOTE | 2017-01-08 22:44 | CARDCATH ---
PROCEDURE DATE: 01/08/2017 HISTORY: This is a 66-year-old who presented to the emergency room with jaw discomfort. His pain eventually radiated to his right side of his chest, and electrocardiogram showed evidence of suspicious anterior ST-T changes. The troponin was drawn and was found to be nearly 6. Urgent catheterization was advised. INDICATIONS: Acute coronary syndrome and non-ST segment elevation myocardial infarction. PROCEDURES: 1. Selective left and right coronary angiography. 2. Left ventriculography. 3. PCI of mid LAD with drug-eluting stents. 4. Aspiration thrombectomy. 5. Right femoral arteriography. 6. Angio-Seal deployment. FINDINGS: Hemodynamics: The aortic pressure was 170/70 with left ventricular pressure of 170/16. CORONARY ANATOMY: 1. The left mainstem was normal. 2. The left anterior ascending artery had moderate irregularities proximally and 95% stenosis in the mid segment with evidence of thrombus beyond the lesion. The diagonal branch had evidence of moderate diffuse disease. 3. The left circumflex artery had mild irregularities. 4. The right coronary artery was largely dominant with mild irregularities. LEFT VENTRICULOGRAPHY: A left ventriculogram was performed in the GUAJARDO projection with hand injection only. This revealed moderate distal anterolateral an apical hypokinesis. Overall ejection fraction appeared to be 45%. CORONARY INTERVENTION: Total of 5000 units of heparin was administered and 3.5 EBU-guide catheter was utilized to cannulate the left coronary artery system. The lesion in the LAD was successfully crossed with the use of a [place] wire. Following this a thrombectomy catheter was advanced and multiple aspirations performed. There was moderate degree of thrombus recovered with aspiration. Following this, a 2.75 x 22 mm Resolute drug-eluting stent was advanced into the lesion and inflated to 12 atmospheres. There was MINA grade III flow following the intervention. MINA grade 3 flow was present at the end of the procedure. RIGHT FEMORAL ARTERIOGRAPHY: A right femoral arteriogram was performed revealing no evidence of significant disease and appropriate level of arterial punch. The puncture site was then closed with deployment of an Angio-Seal device. CONCLUSION: 1. Severe mid LAD stenosis. 2. Mildly reduced LV systolic function. 3. Successful PCI of mid LAD with drug-eluting stent as described above. RECOMMENDATIONS: Aspirin, Plavix, and beta-brett therapy will be initiated as well as KANDACE inhibitor. Serial enzymes and electrocardiograms will be obtained. Bertram Sharma MD [facility] # [id number] HARVEY
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
[2017-01-09 03:36] LABS: BASO # 0.01 K/mm3 (0.0-2.0); BASO % 0.2 % (0.0-3.0); EOS # 0.1 (0.0-0.7); EOS % 1.3 % (1.5-5.0); GRAN # 3.93 (1.4-6.5); GRAN % 63.5 % (50.0-68.0); LYMPH # 1.6 (1.2-3.4); LYMPH % 26.1 % (22.0-35.0); MEAN CELL VOLUME 84.9 fl (80.0-105.0); MEAN CORPUSCULAR HEMOGLOBIN 28.3 pg (25.0-35.0); MEAN CORPUSCULAR HGB CONC 33.3 g/dl (31.0-37.0); MEAN PLATELET VOLUME 9.5 fl (7.0-11.0); MONO # 0.6 (0.1-0.6); MONO % 8.9 % (1.0-6.0); RED CELL DISTRIBUTION WIDTH 15.2 % (11.5-14.5); WHITE BLOOD COUNT 6.2 10^3/ul (4.5-11.0)
[2017-01-09 04:01] LABS: ALB/GLOB RATIO 0.9 (1.1-1.8); ALKALINE PHOSPHATASE 91 U/L (38-126); ALT/SGPT 27 U/L (7-56); AST/SGOT 82 U/L (17-59); BILIRUBIN,TOTAL 0.3 mg/dL (0.2-1.3); BLOOD UREA NITROGEN 9 mg/dL (7-21); CARBON DIOXIDE 30 mmol/L (21-33); CHLORIDE 103 mmol/L (98-107); CHOLESTEROL 202 mg/dL (130-200); GFR AFRICAN-AMERICAN > 60; GLUCOSE,RANDOM 137 mg/dL (70-110); MAGNESIUM 1.9 mg/dL (1.7-2.2); POTASSIUM 3.7 mmol/L (3.6-5.0); SODIUM 138 mmol/L (132-148); TOTAL PROTEIN 6.4 g/dL (5.8-8.3)
[2017-01-09 05:52] VITALS: RESP 20
[2017-01-09] MEDS: Pantoprazole 40 mg EC Tab PO SCH (07:52)
--- NOTE | 2017-01-09 08:01 | CP.PCM.PN ---
<Celina Silva - Last Filed: 01/09/17 17:52> Subjective - Date & Time of Evaluation Date of Evaluation: 01/09/17 Time of Evaluation: 17:26 - Subjective Subjective: Celina Silva DO, PGY-1, Hospitalist Service Patient is resting comfortably in bed, easily aroused. No signs of distress noted. Right groin soft to touch with dry and intact pressure dressing. No ecchymosis, bruising, bleeding, swelling, hematoma to site. Pedal pulses palpable. No distress noted. Patient denies any pain/discomfort at this time. Objective - Vital Signs/Intake and Output Vital Signs (last 24 hours): Temp Pulse Resp BP Pulse Ox 98.2 F 93 H 20 128/82 97 01/09/17 05:52 01/09/17 05:52 01/09/17 05:52 01/09/17 05:52 01/09/17 05:52 Intake and Output: 01/09/17 01/09/17 06:59 18:59 Intake Total 1000 240 Output Total 200 Balance 1000 40 - Medications Medications: Current Medications Acetaminophen (Tylenol 325mg Tab) 650 mg PO Q6H PRN PRN Reason: Pain, Mild (1-3) Last Admin: 01/08/17 23:14 Dose: 650 mg Aspirin (Ecotrin) 81 mg PO DAILY [facility] Atorvastatin Calcium (Lipitor) 80 mg PO HS [facility] Last Admin: 01/08/17 21:28 Dose: 80 mg Clopidogrel Bisulfate (Plavix) 75 mg PO DAILY [facility] Docusate Sodium (Colace) 100 mg PO BID [facility] Lisinopril (Zestril) 5 mg PO DAILY [facility] Metoprolol Tartrate (Lopressor) 25 mg PO BID [facility] Pantoprazole Sodium (Protonix Ec Tab) 40 mg PO ACB [facility] Last Admin: 01/09/17 07:52 Dose: 40 mg Zolpidem Tartrate (Ambien) 5 mg PO HS PRN PRN Reason: Insomnia Last Admin: 01/08/17 21:28 Dose: 5 mg - Labs Labs: 01/09/17 03:40 01/09/17 03:40 - Constitutional Appears: Well, No Acute Distress - Head Exam Head Exam: ATRAUMATIC, NORMOCEPHALIC - Eye Exam Eye Exam: EOMI, Normal appearance, PERRL - ENT Exam ENT Exam: Mucous Membranes Moist, Normal Oropharynx - Neck Exam Neck Exam: Normal Inspection. absent: Lymphadenopathy - Respiratory Exam Respiratory Exam: Clear to Ausculation Bilateral, NORMAL BREATHING PATTERN. absent: Rales - Cardiovascular Exam Cardiovascular Exam: RRR, +S1, +S2 - GI/Abdominal Exam GI & Abdominal Exam: Soft, Normal Bowel Sounds. absent: Rigid, Pulsatile Mass, Rebound - Extremities Exam Extremities Exam: Normal Capillary Refill, Normal Inspection. absent: Pedal Edema - Back Exam Back Exam: NORMAL INSPECTION. absent: CVA tenderness (L), CVA tenderness (R) - Neurological Exam Neurological Exam: Alert, Awake, CN II-XII Intact, Oriented x3 Neuro motor strength exam: Left Upper Extremity: 5, Right Upper Extremity: 5, Left Lower Extremity: 5, Right Lower Extremity: 5 - Psychiatric Exam Psychiatric exam: Normal Affect, Normal Mood - Skin Skin Exam: Dry, Intact, Normal Color, Warm Assessment and Plan - Assessment and Plan (Free Text) Assessment: 66 year old male with past medical history of pelvic fracture who presented with jaw pain and right sided chest pain. He was found to have mild ST elevations at V2-V4 and elevated troponin. Admitted for ACS on telemetry. Plan: 1) NSTEMI - 95% stenosis in the mid-segment of the LAD s/p clot evacuation and placement of Resolute DAVIDA. - Aspirin 81, Plavix 75, Metoprolol Succinate 50, and Lisinopril 5 mg - Serial EKG ordered at 6:30 PM - Discussed with patient that he must remain on Plavix for one year, unless otherwise contraindicated. - Lipitor 80 mg HS - LDL was 150, HDL 28, Cholesterol 202, TG 173 - HgbA1c was 6.8 2) Previously un-identified risk factors: DM, Dyslipidemia, - Will field counsel patient on Diabetes, eating healthy, following up with PMD in this regard as well. 3) Post-cardiac cath precautions instituted per cardiology. <Israel LOYD,Juana - Last Filed: 01/10/17 12:56> Objective - Vital Signs/Intake and Output Vital Signs (last 24 hours): Temp Pulse Resp BP Pulse Ox 97.1 F L 74 20 103/59 L 97 01/10/17 12:00 01/10/17 12:00 01/10/17 12:00 01/10/17 12:00 01/10/17 06:00 Intake and Output: 01/10/17 01/10/17 06:59 18:59 Intake Total 1200 Output Total 450 Balance 750 - Medications Medications: Current Medications Acetaminophen (Tylenol 325mg Tab) 650 mg PO Q6H PRN PRN Reason: Pain, Mild (1-3) Last Admin: 01/08/17 23:14 Dose: 650 mg Amitriptyline HCl (Elavil) 1 mg PO HS [facility] Aspirin (Ecotrin) 81 mg PO DAILY [facility] Last Admin: 01/10/17 09:48 Dose: 81 mg Atorvastatin Calcium (Lipitor) 80 mg PO HS [facility] Last Admin: 01/09/17 21:03 Dose: 80 mg Clopidogrel Bisulfate (Plavix) 75 mg PO DAILY [facility] Last Admin: 01/10/17 09:48 Dose: 75 mg Docusate Sodium (Colace) 100 mg PO BID [facility] Last Admin: 01/10/17 09:48 Dose: 100 mg Gabapentin (Neurontin) 300 mg PO BID [facility] PRN Reason: Protocol Last Admin: 01/10/17 11:36 Dose: 300 mg Lisinopril (Zestril) 5 mg PO DAILY [facility] Last Admin: 01/10/17 09:47 Dose: 5 mg Metoprolol Succinate (Toprol Xl) 50 mg PO BRK [facility] Last Admin: 01/10/17 08:17 Dose: 50 mg Pantoprazole Sodium (Protonix Ec Tab) 40 mg PO ACB [facility] Last Admin: 01/10/17 08:17 Dose: 40 mg Tamsulosin HCl (Flomax) 0.4 mg PO DAILY [facility] Last Admin: 01/10/17 11:36 Dose: 0.4 mg Zolpidem Tartrate (Ambien) 5 mg PO HS PRN PRN Reason: Insomnia Last Admin: 01/08/17 21:28 Dose: 5 mg - Labs Labs: 01/10/17 07:00 01/10/17 07:00 Attending/Attestation - Attestation I have personally seen and examined this patient.: Yes I have fully participated in the care of the patient.: Yes I have reviewed all pertinent clinical information, including history, physical exam and plan: Yes Notes (Text): 01/10/17 12:56 Patient was seen and examined with medical doctor md/medical director. Agreed with resident assessment and plan. Management plan was discussed in detail with patient Education was provided.
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
[2017-01-09] MEDS: Metoprolol Succinate 50 mg XL Tab PO SCH (09:21)
--- NOTE | 2017-01-09 20:21 | CARD ---
APPROVED REPORT EKG Measurement Heart [id number] [place] [id number] <Conclusion> Normal sinus rhythm Possible Anterior infarct, age undetermined Abnormal ECG
--- NOTE | 2017-01-09 20:56 | CARD ---
APPROVED REPORT EKG Measurement Heart [id number] DC [id number] <Conclusion> Normal sinus rhythm Septal infarct, age undetermined Abnormal ECG
--- NOTE | 2017-01-09 21:05 | CARD ---
APPROVED REPORT EKG Measurement Heart [id number] IA [id number] <Conclusion> Normal sinus rhythm Septal infarct, age undetermined Abnormal ECG
[2017-01-10 07:55] LABS: BASO # 0.02 K/mm3 (0.0-2.0); BASO % 0.3 % (0.0-3.0); EOS # 0.1 (0.0-0.7); EOS % 1.8 % (1.5-5.0); GRAN # 3.66 (1.4-6.5); GRAN % 59.8 % (50.0-68.0); HEMATOCRIT 38.4 % (42.0-52.0); LYMPH # 1.7 (1.2-3.4); LYMPH % 27.5 % (22.0-35.0); MEAN CELL VOLUME 84.4 fl (80.0-105.0); MEAN CORPUSCULAR HEMOGLOBIN 27.7 pg (25.0-35.0); MEAN CORPUSCULAR HGB CONC 32.8 g/dl (31.0-37.0); MEAN PLATELET VOLUME 9.5 fl (7.0-11.0); MONO # 0.7 (0.1-0.6); MONO % 10.6 % (1.0-6.0); WHITE BLOOD COUNT 6.1 10^3/ul (4.5-11.0)
[2017-01-10 08:06] LABS: ALKALINE PHOSPHATASE 91 U/L (38-126); ALT/SGPT 40 U/L (7-56); AST/SGOT 42 U/L (17-59); BILIRUBIN,TOTAL 0.5 mg/dL (0.2-1.3); BLOOD UREA NITROGEN 7 mg/dL (7-21); CALCIUM 8.6 mg/dL (8.4-10.5); CARBON DIOXIDE 31 mmol/L (21-33); CHLORIDE 104 mmol/L (98-107); GFR AFRICAN-AMERICAN > 60; GLUCOSE,RANDOM 104 mg/dL (70-110); SODIUM 140 mmol/L (132-148); TOTAL PROTEIN 6.8 g/dL (5.8-8.3)
[2017-01-10] MEDS: Pantoprazole 40 mg EC Tab PO SCH (08:17)
[2017-01-10] MEDS: Metoprolol Succinate 50 mg XL Tab PO SCH (08:17)
--- NOTE | 2017-01-10 09:51 | CARD ---
APPROVED REPORT EXAM: Two-dimensional and M-mode echocardiogram with Doppler and color Doppler. INDICATION FL 2D DIMENSIONS Left Atrium (2D)4.1 (1.6-4.0cm)IVSd1.3 (0.7-1.1cm) LVDd4.5 (3.9-5.9cm)PWd1.3 (0.7-1.1cm) M-Mode DIMENSIONS Aortic Root3.40 (2.2-3.7cm)Aortic Cusp Exc.2.00 (1.5-2.0cm) Aortic Valve AoV Peak Fepiuqrm486.0cm/Lea Peak GR.5mmHg Mitral Valve MV E Ugzssxav25.7cm/sMV A [place]92.3cm/sE/A ratio0.8 TDI Lateral E' Peak V7.12cm/sMedial E' Peak V5.36cm/sE/Lateral E'7.5 E/Medial E'10.0 Pulmonary Valve PV Peak Qbyravyf20.9cm/sPV Peak Grad.2mmHg Tricuspid Valve TR Peak [id number]/sRAP [id number] Peak Gr.20mmHg [id number] LEFT VENTRICLE The left ventricle is normal size. There is mild concentric left ventricular hypertrophy. The systolic function is mildly to moderately impaired. Severe apical hypokinesis. RIGHT VENTRICLE The right ventricle is normal size. The right ventricular systolic function is normal. ATRIA The left atrium is mildly dilated. The right atrium size is normal. The interatrial septum is intact with no evidence for an atrial septal defect. AORTIC VALVE The aortic valve is normal in structure. No aortic regurgitation is present. There is no aortic valvular stenosis. MITRAL VALVE The mitral valve is normal in structure. There is no mitral valve regurgitation noted. TRICUSPID VALVE The tricuspid valve is normal in structure. There is trace to mild tricuspid regurgitation. PULMONIC VALVE The pulmonary valve is normal in structure. GREAT VESSELS The aortic root is normal in size. The IVC is normal in size and collapses >50% with inspiration. PERICARDIAL EFFUSION There is no pleural effusion. There is no pericardial effusion. <Conclusion> Mildly dilated LA. Mild to moderately reduced LV systolic function with apical hypokinesis. Mild concentric LVH.
[2017-01-10 12:28] VITALS: BP 103/59; PULSE 74; TEMP 97.1
[2017-01-10 15:23] VITALS: O2SAT 96
--- NOTE | 2017-01-10 17:24 | PN ---
DATE: 01/10/2017 SUBJECTIVE: The patient is seen lying in bed on telemetry. He is comfortable at the present time. Denies any chest pain. He has had no jaw pain either. He did some ambulation yesterday with no limitations. CURRENT MEDICATIONS: Remain; Ecotrin once daily, Plavix 75 mg daily, Elavil 1 mg at bedtime, Flomax 0.4 mg daily, Lipitor 80 mg daily, Neurontin 300 mg b.i.d., Protonix 40 mg daily, metoprolol 50 mg daily, and Zestril 5 mg daily. OBJECTIVE: GENERAL: He is a middle-aged male, who appears comfortable at the present time. VITAL SIGNS: His blood pressure is 132/72 with a pulse of 76, respirations are 14, he is afebrile. HEENT: No JVD. CHEST: Clear to auscultation and percussion. HEART: PMI in normal position. No pathological gallops noted. ABDOMEN: Soft and nontender with bowel sounds. EXTREMITIES: No edema. DIAGNOSTIC DATA: Potassium 4.0, BUN and creatinine is 7 and 0.9. White count is 6.1; hemoglobin and hematocrit 12.6 and 38.4 with a platelet count of 295,000. His echocardiogram was reviewed and shows evidence of mildly dilated left atrium with mild to moderately reduced LV systolic function and apical hypokinesis as well as mild concentric LVH. IMPRESSION: Status post anterior wall myocardial infarction, treated with percutaneous coronary intervention of LAD and clinically stable. RECOMMENDATION: From a cardiac standpoint, he appears stable to be discharged home at this time. Uninterrupted aspirin and Plavix therapy should be continued for 1 year. Standard therapy with beta brett, statins, and KANDACE inhibitors will continue as well. We will be happy to follow as an outpatient as needed. Bertram Sharma MD
--- NOTE | 2017-01-10 18:47 | CP.PCM.DIS ---
<Celina Silva - Last Filed: 01/17/17 16:51> Provider - Provider Date of Admission: 01/08/17 14:15 Attending physician: Jung Grijalva MD Primary care physician: Luther Freitas MD Consults: Dr. Long Time Spent in preparation of Discharge (in minutes): 33 Hospital Course - Lab Results Lab Results: Most Recent Lab Values WBC 6.1 10^3/ul (4.5-11.0) 01/10/17 07:00 RBC 4.55 10^6/uL (3.5-6.1) 01/10/17 07:00 Hgb 12.6 g/dL (14.0-18.0) L 01/10/17 07:00 Hct 38.4 % (42.0-52.0) L 01/10/17 07:00 MCV 84.4 fl (80.0-105.0) 01/10/17 07:00 MCH 27.7 pg (25.0-35.0) 01/10/17 07:00 MCHC 32.8 g/dl (31.0-37.0) 01/10/17 07:00 RDW 15.0 % (11.5-14.5) H 01/10/17 07:00 Plt Count 295 10^3/uL (120.0-450.0) 01/10/17 07:00 MPV 9.5 fl (7.0-11.0) 01/10/17 07:00 Gran % 59.8 % (50.0-68.0) 01/10/17 07:00 Lymph % (Auto) 27.5 % (22.0-35.0) 01/10/17 07:00 Cla[place]orne % (Auto) 10.6 % (1.0-6.0) H 01/10/17 07:00 Eos % (Auto) 1.8 % (1.5-5.0) 01/10/17 07:00 Baso % (Auto) 0.3 % (0.0-3.0) 01/10/17 07:00 Gran # 3.66 (1.4-6.5) 01/10/17 07:00 Lymph # 1.7 (1.2-3.4) 01/10/17 07:00 Cla[place]orne # 0.7 (0.1-0.6) H 01/10/17 07:00 Eos # 0.1 (0.0-0.7) 01/10/17 07:00 Baso # 0.02 K/mm3 (0.0-2.0) 01/10/17 07:00 Sodium 140 mmol/L (132-148) 01/10/17 07:00 Potassium 4.0 mmol/L (3.6-5.0) 01/10/17 07:00 Chloride 104 mmol/L (98-107) 01/10/17 07:00 Carbon Dioxide 31 mmol/L (21-33) 01/10/17 07:00 Anion Gap 9 (10-20) L 01/10/17 07:00 BUN 7 mg/dL (7-21) 01/10/17 07:00 Creatinine 0.9 mg/dL (0.5-1.4) 01/10/17 07:00 Est GFR ( Amer) > 60 01/10/17 07:00 Est GFR (Non-Af Amer) > 60 01/10/17 07:00 Random Glucose 104 mg/dL (70-110) 01/10/17 07:00 Hemoglobin A1c 6.8 % (4.2-6.5) H 01/09/17 03:40 Calcium 8.6 mg/dL (8.4-10.5) 01/10/17 07:00 Phosphorus 3.0 mg/dL (2.5-4.5) 01/09/17 03:40 Magnesium 1.9 mg/dL (1.7-2.2) 01/09/17 03:40 Total Bilirubin 0.5 mg/dL (0.2-1.3) 01/10/17 07:00 AST 42 U/L (17-59) 01/10/17 07:00 ALT 40 U/L (7-56) 01/10/17 07:00 Alkaline Phosphatase 91 U/L (38-126) 01/10/17 07:00 Lactate Dehydrogenase 801 U/L (333-699) H 01/09/17 03:40 Total Creatine Kinase 380 U/L (35-230) H 01/09/17 03:40 CK-MB (CK-2) 11.8 ng/mL (0.0-3.6) H 01/09/17 03:40 CK-MB (CK-2) % 3.1 % (2.5-3.0) H 01/09/17 03:40 Troponin I 10.30 ng/mL H* D 01/09/17 03:40 Total Protein 6.8 g/dL (5.8-8.3) 01/10/17 07:00 Albumin 3.4 g/dL (3.0-4.8) 01/10/17 07:00 Globulin 3.5 gm/dL 01/10/17 07:00 Albumin/Globulin Ratio 1.0 (1.1-1.8) L 01/10/17 07:00 Triglycerides 173 mg/dL (35-160) H 01/09/17 03:40 Cholesterol 202 mg/dL (130-200) H 01/09/17 03:40 LDL Cholesterol Direct 150 mg/dL (0-129) H 01/09/17 03:40 HDL Cholesterol 28 mg/dL (29-60) L 01/09/17 03:40 TSH 3rd Generation 1.37 mIU/mL (0.46-4.68) 01/09/17 03:40 - Hospital Course Hospital Course: 66 year old black male with a past medical history of hypertension, b/l lower extremity fractures with secondary urinary retention who presented with right sided chest pain with radiation to the right neck/jaw. Routine diagnostic test showed an revealed a NSTEMI and coronary catherization was performed that revealed 95% stenosis in the Left Anterior Descending artery. A DAVIDA stent was placed in the midportion of the LAD. Also the estimated EF was 45% based on the left ventriculogram. Echocardiogram revealed mildy dilated Left Atrium, mild to moderate systolic dysfuntion with apical hypokinesis, and concentric LV hypertrophy. The patient was also found to have a HgbA1c of 6.8, and dyslipidemia. He was discharged on a beta-brett, metformin, statin, aspirin, plavix, ACEI, and strict instructions to follow up with his PMD in the coming week. - Date & Time of H&P Date of H&P: 01/10/17 Time of H&P: 10:15 Discharge Exam - Head Exam Head Exam: ATRAUMATIC, NORMOCEPHALIC - Eye Exam Eye Exam: EOMI, Normal appearance, PERRL - ENT Exam ENT Exam: Mucous Membranes Moist, Normal Oropharynx - Neck Exam Neck exam: Normal Inspection - Respiratory Exam Respiratory Exam: Clear to PA & Lateral, NORMAL BREATHING PATTERN. absent: Respiratory Distress - Cardiovascular Exam Cardiovascular Exam: RRR, +S1, +S2 - GI/Abdominal Exam GI & Abdominal Exam: Normal Bowel Sounds. absent: Distended, Pulsatile Mass, Rebound - Extremities Exam Extremities exam: normal capillary refill, normal inspection, pedal pulses present - Back Exam Back exam: NORMAL INSPECTION. absent: CVA tenderness (L), CVA tenderness (R) - Neurological Exam Neurological exam: Alert, CN II-XII Intact, Normal Gait, Oriented x3 - Psychiatric Exam Psychiatric exam: Normal Affect, Normal Mood - Skin Skin Exam: Dry, Intact, Normal Color, Warm Discharge Plan - Discharge Medications Prescriptions: Aspirin [Adult Low Dose Aspirin EC] 81 mg PO DAILY #30 tablet. Atorvastatin [Lipitor] 80 mg PO DAILY #30 tab Clopidogrel [Plavix] 75 mg PO DAILY #30 tab Lisinopril [Zestril] 5 mg PO DAILY 30 Days Metformin HCl [Glucophage Xr] 500 mg PO BID #60 tab.er.24h Metoprolol Succinate [Toprol XL] 50 mg PO DAILY #30 tab - Follow Up Plan Condition: SERIOUS Disposition: HOME/ ROUTINE Instructions: Myocardial Infarction (DC), Myocardial Infarction (GEN), Coronary Artery Disease (GEN), Heart Healthy Diet (GEN), Cholesterol and Your Health (GEN), Coronary Intravascular Stent Placement (GEN) Additional Instructions: 1) Follow up with PMD within one week of discharge 2) Continue taking new medications as directed. 3) Please return to the hospital if you have any new, or worsening symptoms. 4) Please inform PMD that your HbgA1c was 6.8 while you were in the hospital. Please follow s/p cardiac catherization activity instructions. If bleeding occurs at site of entry for cardiac catherization, apply pressure and go to the nearest emergency room. patient refuses flu and pneumococcal vaccines as of this writing. Diet: Heart healthy, low cholesterol Monitor carbohydrate consumption. Referrals: Luther Freitas MD [Primary Care Provider] - Follow up with primary <Jung Grijalva - Last Filed: 01/18/17 06:42> Provider - Provider Date of Admission: 01/08/17 14:15 Attending physician: Jung Grijalva MD Primary care physician: Luther Freitas MD Time Spent in preparation of Discharge (in minutes): 35 Hospital Course - Lab Results Lab Results: Most Recent Lab Values WBC 6.1 10^3/ul (4.5-11.0) 01/10/17 07:00 RBC 4.55 10^6/uL (3.5-6.1) 01/10/17 07:00 Hgb 12.6 g/dL (14.0-18.0) L 01/10/17 07:00 Hct 38.4 % (42.0-52.0) L 01/10/17 07:00 MCV 84.4 fl (80.0-105.0) 01/10/17 07:00 MCH 27.7 pg (25.0-35.0) 01/10/17 07:00 MCHC 32.8 g/dl (31.0-37.0) 01/10/17 07:00 RDW 15.0 % (11.5-14.5) H 01/10/17 07:00 Plt Count 295 10^3/uL (120.0-450.0) 01/10/17 07:00 MPV 9.5 fl (7.0-11.0) 01/10/17 07:00 Gran % 59.8 % (50.0-68.0) 01/10/17 07:00 Lymph % (Auto) 27.5 % (22.0-35.0) 01/10/17 07:00 Claiborne % (Auto) 10.6 % (1.0-6.0) H 01/10/17 07:00 Eos % (Auto) 1.8 % (1.5-5.0) 01/10/17 07:00 Baso % (Auto) 0.3 % (0.0-3.0) 01/10/17 07:00 Gran # 3.66 (1.4-6.5) 01/10/17 07:00 Lymph # 1.7 (1.2-3.4) 01/10/17 07:00 [place] # 0.7 (0.1-0.6) H 01/10/17 07:00 Eos # 0.1 (0.0-0.7) 01/10/17 07:00 Baso # 0.02 K/mm3 (0.0-2.0) 01/10/17 07:00 Sodium 140 mmol/L (132-148) 01/10/17 07:00 Potassium 4.0 mmol/L (3.6-5.0) 01/10/17 07:00 Chloride 104 mmol/L (98-107) 01/10/17 07:00 Carbon Dioxide 31 mmol/L (21-33) 01/10/17 07:00 Anion Gap 9 (10-20) L 01/10/17 07:00 BUN 7 mg/dL (7-21) 01/10/17 07:00 Creatinine 0.9 mg/dL (0.5-1.4) 01/10/17 07:00 Est GFR ( Amer) > 60 01/10/17 07:00 Est GFR (Non-Af Amer) > 60 01/10/17 07:00 Random Glucose 104 mg/dL (70-110) 01/10/17 07:00 Hemoglobin A1c 6.8 % (4.2-6.5) H 01/09/17 03:40 Calcium 8.6 mg/dL (8.4-10.5) 01/10/17 07:00 Phosphorus 3.0 mg/dL (2.5-4.5) 01/09/17 03:40 Magnesium 1.9 mg/dL (1.7-2.2) 01/09/17 03:40 Total Bilirubin 0.5 mg/dL (0.2-1.3) 01/10/17 07:00 AST 42 U/L (17-59) 01/10/17 07:00 ALT 40 U/L (7-56) 01/10/17 07:00 Alkaline Phosphatase 91 U/L (38-126) 01/10/17 07:00 Lactate Dehydrogenase 801 U/L (333-699) H 01/09/17 03:40 Total Creatine Kinase 380 U/L (35-230) H 01/09/17 03:40 CK-MB (CK-2) 11.8 ng/mL (0.0-3.6) H 01/09/17 03:40 CK-MB (CK-2) % 3.1 % (2.5-3.0) H 01/09/17 03:40 Troponin I 10.30 ng/mL H* D 01/09/17 03:40 Total Protein 6.8 g/dL (5.8-8.3) 01/10/17 07:00 Albumin 3.4 g/dL (3.0-4.8) 01/10/17 07:00 Globulin 3.5 gm/dL 01/10/17 07:00 Albumin/Globulin Ratio 1.0 (1.1-1.8) L 01/10/17 07:00 Triglycerides 173 mg/dL (35-160) H 01/09/17 03:40 Cholesterol 202 mg/dL (130-200) H 01/09/17 03:40 LDL Cholesterol Direct 150 mg/dL (0-129) H 01/09/17 03:40 HDL Cholesterol 28 mg/dL (29-60) L 01/09/17 03:40 TSH 3rd Generation 1.37 mIU/mL (0.46-4.68) 01/09/17 03:40 Attending/Attestation - Attestation I have personally seen and examined this patient.: Yes I have fully participated in the care of the patient.: Yes I have reviewed all pertinent clinical information, including history, physical exam and plan: Yes Notes (Text): 01/18/17 06:41 66 year old male with past medical history of pelvic fracture who presented with jaw pain and right sided chest pain. He was found to have mild ST elevations at V2-V4 and elevated troponin. He was started on aspirin, plavix, BB, statin and lovenox. He was seen by cardiology and underwent cardiac cath s/ p stent as above. Patient is discharged home to follow up with pmd and cardiology. To start metformin for diabetes in 24-48 hrs. Counselled on diabetic diet. Jung Grijalva MD Hospitalist.
== END 2017-01-10 15:41 | disposition home or self-care (01) | DRG 550 ==
LOC: ED 08:48 → ERH 14:15 → 2RSO 18:53
PROVIDERS: ADMIT Internal Medicine; ATTEND Internal Medicine
PROC: 027034Z Dilation of Coronary Artery, One Artery with Drug-eluting Intraluminal Device, Percutaneous Approach (ICD-10-PCS; principal; 2017-01-08)
PROC: B2111ZZ Fluoroscopy of Multiple Coronary Arteries using Low Osmolar Contrast (ICD-10-PCS; 2017-01-08)
PROC: B2151ZZ Fluoroscopy of Left Heart using Low Osmolar Contrast (ICD-10-PCS; 2017-01-08)
PROC: B41F1ZZ Fluoroscopy of Right Lower Extremity Arteries using Low Osmolar Contrast (ICD-10-PCS; 2017-01-08)
PROC: 3E053PZ Introduction of Platelet Inhibitor into Peripheral Artery, Percutaneous Approach (ICD-10-PCS; 2017-01-08)
DX: I25.10 Atherosclerotic heart disease of native coronary artery without angina pectoris (principal); I21.09 ST elevation (STEMI) myocardial infarction involving other coronary artery of anterior wall; I10 Essential (primary) hypertension; E78.5 Hyperlipidemia, unspecified; K08.89 Other specified disorders of teeth and supporting structures; Z79.899 Other long term (current) drug therapy; Z82.49 Family history of ischemic heart disease and other diseases of the circulatory system; Z87.81 Personal history of (healed) traumatic fracture; E11.9 Type 2 diabetes mellitus without complications

== ENCOUNTER 2018-07-13 15:43 | Inpatient (IN) | payer MEDICAID | END 2018-07-16 18:30 | disposition home or self-care (01) | LOC: ED 15:43 → ERH 20:39 → 3RSO 22:24 ==

== ENCOUNTER 2018-07-20 11:28 | Observation (INO) | payer MEDICAID ==
[2018-07-20 11:41] VITALS: BMI 28.2
[2018-07-20] MEDS ORDERED: Sodium Chloride 0.9% 1,000 ML IV STA (12:00)
--- NOTE | 2018-07-20 12:47 | ED PDOC ---
Arrival/HPI - General Chief Complaint: Dizziness/Lightheaded Time Seen by Provider: 07/20/18 11:30 Historian: Patient, Partner - History of Present Illness Narrative History of Present Illness (Text): 07/20/18 12:00 67 year old F, with past medical history of HTN, CAD s/p stent placement, T2DM, pelvic fracture, urinary retention, and glaucoma, presents to the ED accompanied by partner for evaluation of generalized fatigue and "tightness" since 9:30 am this morning. 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 Patient denies any fall or trauma. At bedside, patient is somnolent and intermittently answers to verbal stimuli. ROS limited secondary to patient's clinical presentation. PMD: Dr. Freitas Time/Duration: Prior to Arrival Symptom Onset: Gradual Symptom Course: Unchanged Activities at Onset: Light Context: Other ([employer] office) Past Medical History - Provider Review Nursing Documentation Reviewed: Yes - Infectious Disease Hx of Infectious Diseases: None - Cardiac Hx Cardiac Disorders: Yes Hx Hypertension: Yes - Pulmonary Hx Respiratory Disorders: No - Neurological Hx Neurological Disorder: No - HEENT Hx HEENT Disorder: Yes Hx Cataracts: Yes (ou no sx yet) Hx Glaucoma: Yes - Renal Hx Renal Disorder: No - Endocrine/Metabolic Hx Endocrine Disorders: No - Hematological/Oncological Hx Blood Disorders: No - Integumentary Hx Dermatological Disorder: No - Musculoskeletal/Rheumatological Hx Musculoskeletal Disorders: Yes - Gastrointestinal Hx Gastrointestinal Disorders: No - Genitourinary/Gynecological Hx Genitourinary Disorders: Yes Hx Prostate Problems: Yes (TURP) - Psychiatric Hx Psychophysiologic Disorder: Yes Hx Depression: Yes Hx Substance Use: No - Surgical History Hx Gastric Bypass Surgery: No Other/Comment: questionable TUR - Anesthesia Hx Anesthesia: No Hx Anesthesia Reactions: No Hx Malignant Hyperthermia: No - Suicidal Assessment Feels Threatened In Home Enviroment: No Family/Social History - Physician Review Nursing Documentation Reviewed: Yes Family/Social History: Unknown Family HX Smoking Status: Never Smoked Hx Alcohol Use: No Hx Substance Use: No Hx Substance Use Treatment: No Allergies/Home Meds Allergies/Adverse Reactions: Allergies No Known Allergies Allergy (Verified 01/08/17 14:53) Home Medications: Home Meds Medication Instructions Recorded Confirmed Escitalopram [Lexapro] 10 mg PO HS 01/10/17 07/13/18 Gabapentin [Neurontin] 300 mg PO TID 01/10/17 07/13/18 Review of Systems - Review of Systems Systems not reviewed;Unavailable: Acuity of Condition (Lethargic) Constitutional: Fatigue Physical Exam Vital Signs Reviewed: Yes Vital Signs Temp Pulse Resp BP Pulse Ox 07/20/18 11:37 98.7 F 80 18 94/70 L 97 Temperature: Afebrile Blood Pressure: Hypotensive Pulse: Regular Respiratory Rate: Normal Appearance: Positive for: Other (Lethargic) Pain Distress: None Mental Status: Positive for: Alert and Oriented X 3 Finger Stick Blood Glucose: 144 - Systems Exam Head: Present: Atraumatic, Normocephalic Mouth: Present: Moist Mucous Membranes Respiratory/Chest: Present: Clear to Auscultation, Good Air Exchange. No: Respiratory Distress, Accessory Muscle Use Cardiovascular: Present: Normal S1, S2, Bradycardic. No: Murmurs Abdomen: No: Tenderness, Distention, Peritoneal Signs Upper Extremity: Present: Normal Inspection. No: Cyanosis, Edema Lower Extremity: Present: Normal Inspection. No: Edema Neurological: Present: GCS=15, Other (Able to respond to verbal stimuli) Skin: Present: Warm, Dry, Normal Color. No: Rashes Psychiatric: Present: Alert, Oriented x 3, Lethargic Medical Decision Making ED Course and Treatment: 07/20/18 12:00 Impression: 67 year old male presents to the ED for evaluation of generalized fatigue. Differential Diagnosis included but are not limited to: Plan: -- CT of Head -- EKG -- Labs -- CXR -- IV Fluids -- Urinalysis -- Reassess and disposition Prior Visits: Notes and results from previous visits were reviewed. Progress Notes: - RAD Interpretation Radiology Orders: 07/20/18 11:59 HEAD W/O CONTRAST [CT] Stat CHEST PORTABLE [RAD] Stat - EKG Interpretation EKG Interpretation (Text): 07/20/18 12:05 EkG reviewed, shows NSR at 73 bpm, LVH, no QT prolongation, no ST elevation. Interpreted by ED Physician: Yes Type: 12 lead EKG - Medication Orders Current Medication Orders: Sodium Chloride (Sodium Chloride 0.9%) 1,000 mls @ 999 mls/hr IV .Q1H1M STA Stop: 07/20/18 13:00 - Scribe Statement The provider has reviewed the documentation as recorded by the Scribe Suresh Prieto. All medical record entries made by the Summeribtin were at my direction and personally dictated by me. I have reviewed the chart and agree that the record accurately reflects my personal performance of the history, physical exam, medical decision making, and the department course for this patient. I have also personally directed, reviewed, and agree with the discharge instructions and disposition. Disposition/Present on Arrival - Present on Arrival History of DVT/PE: No History of Uncontrolled Diabetes: No Urinary Catheter: No History of Decub. Ulcer: No History Surgical Site Infection Following: None - Disposition Disposition: HOSPITALIZED
[2018-07-20 12:48] LABS: BASO # 0.02 K/mm3 (0.0-2.0); BASO % 0.3 % (0.0-3.0); EOS # 0.1 (0.0-0.7); EOS % 1.2 % (1.5-5.0); HEMOGLOBIN 12.2 g/dL (14.0-18.0); LYMPH # 2.3 (1.2-3.4); LYMPH % 33.7 % (22.0-35.0); MEAN CELL VOLUME 85.6 fl (80.0-105.0); MEAN CORPUSCULAR HGB CONC 32.7 g/dl (31.0-37.0); MEAN PLATELET VOLUME 9.5 fl (7.0-11.0); MONO # 0.6 (0.1-0.6); MONO % 8.7 % (1.0-6.0); RBC 4.36 10^6/uL (3.5-6.1); RED CELL DISTRIBUTION WIDTH 15.6 % (11.5-14.5); WHITE BLOOD COUNT 6.7 10^3/uL (4.5-11.0)
[2018-07-20 13:02] LABS: ALBUMIN 3.6 g/dL (3.0-4.8); ALT/SGPT 21 U/L (7-56); AST/SGOT 28 U/L (17-59); BLOOD UREA NITROGEN 13 mg/dL (7-21); CALCIUM 8.9 mg/dL (8.4-10.5); GFR NON-AFRICAN AMERICAN 51
[2018-07-20 13:03] LABS: ACETAMINOPHEN < 10.0 ug/ml (10.0-20.0); SALICYLATE < 1 mg/dL (2.0-20.0)
[2018-07-20 13:10] LABS: B-TYPE NATRIURETIC PEPTIDE 234 pg/mL (0-450); TROPONIN I < 0.01 ng/mL
--- NOTE | 2018-07-20 13:18 | CT ---
Date of service: 07/20/2018 PROCEDURE: CT HEAD WITHOUT CONTRAST. HISTORY: altered mental status COMPARISON: None available. TECHNIQUE: Axial computed tomography images were obtained through the head/brain without intravenous contrast. Radiation dose: Total exam DLP = 998.18 mGy-cm. This CT exam was performed using one or more of the following dose reduction techniques: Automated exposure control, adjustment of the mA and/or kV according to patient size, and/or use of iterative reconstruction technique. FINDINGS: HEMORRHAGE: No intracranial hemorrhage. BRAIN: No mass effect or edema. There is mild atrophy of the cerebellum. VENTRICLES: Unremarkable. No hydrocephalus. CALVARIUM: Unremarkable. PARANASAL SINUSES: Partial opacification of the ethmoid sinuses on the right MASTOID AIR CELLS: Unremarkable as visualized. No inflammatory changes. OTHER FINDINGS: None. IMPRESSION: No acute intracranial findings.
[2018-07-20 13:21] LABS: FREE T4 0.98 ng/dL (0.78-2.19)
--- NOTE | 2018-07-20 13:29 | RAD ---
Date of service: 07/20/2018 HISTORY: altered mental status COMPARISON: 07/13/2018 FINDINGS: LUNGS: No active pulmonary disease. PLEURA: No significant pleural effusion identified, no pneumothorax apparent. CARDIOVASCULAR: No aortic atherosclerotic calcification present. Normal cardiac size. No pulmonary vascular congestion. OSSEOUS STRUCTURES: No significant abnormalities. VISUALIZED UPPER ABDOMEN: Normal. OTHER FINDINGS: None. IMPRESSION: No active disease.
--- NOTE | 2018-07-20 14:45 | CP.PCM.HP ---
<Cory Truong - Last Filed: 07/20/18 15:39> History of Present Illness - History of Present Illness History of Present Illness: Cory Truong, PGY-1 History and Physical for Hospitalist Service CC: Lightheadedness HPI: Mr. King is a 67 year old male with past medical history of HTN, CAD s/p stent placement, T2DM, pelvic fracture, urinary retention, glaucoma presenting with chief complaint of dizziness and feeling faint. 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 Symptoms lasted for a half an hour and improved in severity although currently present. Patient denies any trauma or loss of consciousness. He states he had a similar episode of dizziness and feeling faint on prior admission last week and workup at that time was unremarkable. Patient also admits to chronic generalized burning sensation from head to toe, including in his chest region. He is noncompliant with his home medications and states that he forgets to take them at times. When asked if patient stopped his medications upon recent discharge, patient was not sure. Patient reports full body burning present on previous admission but denies fevers, chills, shortness of breath, nausea, vomiting, abdominal pain, diarrhea, dysuria. PMH: HTN, CAD, T2DM, pelvic fracture, urinary retention, glaucoma PSH: stent in LAD (2017) SHx: denies alcohol, tobacco, illicit drug use FHx: father has hypertension Allergies: NKDA PMD: Dr. Luther Freitas Present on Admission - Present on Admission Any Indicators Present on Admission: No Review of Systems - Review of Systems Review of Systems: 12 point ROS completed and negative except as described in HPI. Past Patient History - Infectious Disease Hx of Infectious Diseases: None - Past Social History Smoking Status: Never Smoked - CARDIAC Hx Cardiac Disorders: Yes Hx Hypertension: Yes - PULMONARY Hx Respiratory Disorders: No - NEUROLOGICAL Hx Neurological Disorder: No - HEENT Hx HEENT Problems: Yes Hx Cataracts: Yes (ou no sx yet) Hx Glaucoma: Yes - RENAL Hx Chronic Kidney Disease: No - ENDOCRINE/METABOLIC Hx Endocrine Disorders: No - HEMATOLOGICAL/ONCOLOGICAL Hx Blood Disorders: No - INTEGUMENTARY Hx Dermatological Problems: No - MUSCULOSKELETAL/RHEUMATOLOGICAL Hx Musculoskeletal Disorders: Yes - GASTROINTESTINAL Hx Gastrointestinal Disorders: No - GENITOURINARY/GYNECOLOGICAL Hx Genitourinary Disorders: Yes Hx Prostate Problems: Yes (TURP) - PSYCHIATRIC Hx Psychophysiologic Disorder: Yes Hx Depression: Yes Hx Substance Use: No - SURGICAL HISTORY Hx Gastric Bypass Surgery: No Other/Comment: questionable TUR - ANESTHESIA Hx Anesthesia: No Hx Anesthesia Reactions: No Hx Malignant Hyperthermia: No Meds Allergies/Adverse Reactions: Allergies Allergy/AdvReac Type Severity Reaction Status Date / Time No Known Allergies Allergy Verified 01/08/17 14:53 Physical Exam - Additional Findings Additional findings: - Constitutional Appears: Non-toxic, No Acute Distress - Head Exam Head Exam: ATRAUMATIC, NORMOCEPHALIC - Eye Exam Eye Exam: EOMI, PERRL Additional comments: bilateral cataracts. Eyes dilated due to recent chemical dilation in optho appt . No nystagmus - ENT Exam ENT Exam: Mucous Membranes Moist - Neck Exam Neck exam: Positive for: Normal Inspection - Respiratory Exam Respiratory Exam: Clear to Auscultation Bilateral, NORMAL BREATHING PATTERN. absent: Decreased Breath Sounds, Rales, Rhonchi, Wheezes, Respiratory Distress - Cardiovascular Exam Cardiovascular Exam: REGULAR RHYTHM, +S1, +S2. Chest wall TTP. absent: Tachycardia - GI/Abdominal Exam GI & Abdominal Exam: Normal Bowel Sounds, Soft. absent: Distended, Firm, Rebound, Rigid, Tenderness - Extremities Exam Extremities exam: Positive for: normal capillary refill, pedal pulses present. Negative for: pedal edema, tenderness - Neurological Exam Neurological exam: Alert, CN II-XII Intact, Oriented x3 Additional comments: Muscle strength intact UE and LE b/l - Psychiatric Exam Psychiatric exam: Normal Affect, Normal Mood - Skin Skin Exam: Dry, Intact, Normal Color Results - Vital Signs Recent Vital Signs: Last Vital Signs Temp 98.7 F 07/20/18 13:40 Pulse 74 07/20/18 13:40 Resp 17 07/20/18 13:40 BP 98/57 L 07/20/18 13:40 Pulse Ox 100 07/20/18 13:40 - Labs Result Diagrams: 07/20/18 12:37 07/20/18 12:37 Labs: Laboratory Results - last 24 hr 07/20/18 07/20/18 07/20/18 11:44 12:37 12:37 WBC 6.7 RBC 4.36 Hgb 12.2 L Hct 37.3 L MCV 85.6 MCH 28.0 MCHC 32.7 RDW 15.6 H Plt Count 284 MPV 9.5 Neut % (Auto) 56.1 Lymph % (Auto) 33.7 [place] % (Auto) 8.7 H Eos % (Auto) 1.2 L Baso % (Auto) 0.3 Lymph # (Auto) 2.3 [place] # (Auto) 0.6 Eos # (Auto) 0.1 Baso # (Auto) 0.02 Absolute Neuts (auto) 3.75 Sodium 138 Potassium 4.1 Chloride 102 Carbon Dioxide 31 Anion Gap 9 L BUN 13 Creatinine 1.4 Est GFR ( Amer) > 60 Est GFR (Non-Af Amer) 51 POC Glucose (mg/dL) 144 H Random Glucose 113 H Calcium 8.9 Magnesium 2.2 Total Bilirubin 0.2 AST 28 ALT 21 Alkaline Phosphatase 84 Total Creatine Kinase 30 L Troponin I < 0.01 D NT-Pro-B Natriuret Pep 234 Total Protein 7.2 Albumin 3.6 Globulin 3.6 Albumin/Globulin Ratio 1.0 L Free T4 TSH 3rd Generation Salicylates Acetaminophen Alcohol, Quantitative 07/20/18 07/20/18 12:37 12:37 WBC RBC Hgb Hct MCV MCH MCHC RDW Plt Count MPV Neut % (Auto) Lymph % (Auto) [place] % (Auto) Eos % (Auto) Baso % (Auto) Lymph # (Auto) [place] # (Auto) Eos # (Auto) Baso # (Auto) Absolute Neuts (auto) Sodium Potassium Chloride Carbon Dioxide Anion Gap BUN Creatinine Est GFR ( Amer) Est GFR (Non-Af Amer) POC Glucose (mg/dL) Random Glucose Calcium Magnesium Total Bilirubin AST ALT Alkaline Phosphatase Total Creatine Kinase Troponin I NT-Pro-B Natriuret Pep Total Protein Albumin Globulin Albumin/Globulin Ratio Free T4 0.98 TSH 3rd Generation 3.80 Salicylates < 1 L Acetaminophen < 10.0 L Alcohol, Quantitative < 10 Assessment & Plan - Assessment and Plan (Free Text) Assessment: Patient is a 67 year old male with past medical history of HTN, CAD s/p stent placement, T2DM, pelvic fracture, urinary retention, glaucoma presenting with chief complaint of dizziness, feeling faint. Plan: Lightheadedness - Repeat Orthostatics pending; documented positive result on previous admission - CXR unremarkable - Head CT unremarkable - PT eval Neuropathy - Hx of CAD and T2DM - Troponin negx1, continue to trend - EKG shows NSR - TSH WNL - EKG in AM - c/w home Neurontin, Lipitor - Cardiology consulted - Dr. Sharma - recs appreciated HTN - hold home HCTZ, lisinopril due to periods of hypotension. Will consider resuming once CAD - c/w home ASA, Plavix T2DM - diabetic education - ISS, Accuchecks Urinary retention - home Flomax on hold Glaucoma - will request family to bring in eyedrops per patient request GI/DVT ppx Protonix/compression stockings Remote tele HHD Patient seen, case reviewed and plan approved by Dr. Amie Wisdom. Cory Truong, PGY-1 <Ashlie Wisdom R - Last Filed: 07/20/18 16:42> Results - Vital Signs Recent Vital Signs: Last Vital Signs Temp 98.7 F 07/20/18 13:40 Pulse 74 07/20/18 13:40 Resp 17 07/20/18 13:40 BP 98/57 L 07/20/18 13:40 Pulse Ox 100 07/20/18 13:40 - Labs Result Diagrams: 07/20/18 12:37 07/20/18 12:37 Labs: Laboratory Results - last 24 hr 07/20/18 07/20/18 07/20/18 11:44 12:37 12:37 WBC 6.7 RBC 4.36 Hgb 12.2 L Hct 37.3 L MCV 85.6 MCH 28.0 MCHC 32.7 RDW 15.6 H Plt Count 284 MPV 9.5 Neut % (Auto) 56.1 Lymph % (Auto) 33.7 [place] % (Auto) 8.7 H Eos % (Auto) 1.2 L Baso % (Auto) 0.3 Lymph # (Auto) 2.3 [place] # (Auto) 0.6 Eos # (Auto) 0.1 Baso # (Auto) 0.02 Absolute Neuts (auto) 3.75 Sodium 138 Potassium 4.1 Chloride 102 Carbon Dioxide 31 Anion Gap 9 L BUN 13 Creatinine 1.4 Est GFR ( Amer) > 60 Est GFR (Non-Af Amer) 51 POC Glucose (mg/dL) 144 H Random Glucose 113 H Calcium 8.9 Magnesium 2.2 Total Bilirubin 0.2 AST 28 ALT 21 Alkaline Phosphatase 84 Total Creatine Kinase 30 L Troponin I < 0.01 D NT-Pro-B Natriuret Pep 234 Total Protein 7.2 Albumin 3.6 Globulin 3.6 Albumin/Globulin Ratio 1.0 L Free T4 TSH 3rd Generation Salicylates Acetaminophen Alcohol, Quantitative 07/20/18 07/20/18 07/20/18 12:37 12:37 15:47 WBC RBC Hgb Hct MCV MCH MCHC RDW Plt Count MPV Neut % (Auto) Lymph % (Auto) [place] % (Auto) Eos % (Auto) Baso % (Auto) Lymph # (Auto) [place] # (Auto) Eos # (Auto) Baso # (Auto) Absolute Neuts (auto) Sodium Potassium Chloride Carbon Dioxide Anion Gap BUN Creatinine Est GFR ( Amer) Est GFR (Non-Af Amer) POC Glucose (mg/dL) 81 Random Glucose Calcium Magnesium Total Bilirubin AST ALT Alkaline Phosphatase Total Creatine Kinase Troponin I NT-Pro-B Natriuret Pep Total Protein Albumin Globulin Albumin/Globulin Ratio Free T4 0.98 TSH 3rd Generation 3.80 Salicylates < 1 L Acetaminophen < 10.0 L Alcohol, Quantitative < 10 Attending/Attestation - Attestation I have personally seen and examined this patient.: Yes I have fully participated in the care of the patient.: Yes I have reviewed all pertinent clinical information: Yes Notes (Text): Patient seen and examined by me with resident at 2:30PM on 07/20/18 in the emergency room. Case including HPI, physical exam, and assessment and plan discussed with resident. Agree with above with following additions/corrections. Patient is a 67-year-old male with past medical history significant for hypertension, coronary artery disease status post stent placement, type 2 diabetes, pelvic fracture, urinary retention, and glaucoma that presented to the emergency room with lightheadedness. Patient states he went to the [facility] m[facility] for eye exam. When he stood up to go into the office he felt lightheaded and had to sit down. Patient states he felt weak in his legs. Patient had similar episode approximately 1 week ago and was admitted to the hospital and found to have orthostatic hypotension and veterbrobasilar insuffic iency. Patient is unsure if he stopped his home hydrochlorothiazide as he was instructed to do at last admission. Patient states that he is staying well- hydrated. Patient states that the symptoms lasted approximately 30 minutes. He feels that the symptoms have improved since being in the hospital. He denies any chest pain or palpitations. He denies dizziness. No fevers or chills. No nausea, vomiting, or abdominal pain. No dysuria. No diarrhea or constipation. Patient complains of chronic "burning sensation" throughout his body secondary to his neuropathy. 12 point review of systems reviewed by me. See above HPI. All other systems negative. Family History. Mother and had diabetes. Father and had a stroke. Home medications reviewed with patient, Patient is unsure of his medications. Physical exam: General: Awake and alert, lying in bed in no acute distress. HEENT: Normocephalic, atraumatic, Extraocular muscles intact, pupils equal and reactive, no scleral icterus. Oropharynx is pink and moist. Neck is supple. Cardiovascular: Normal rhythm. Normal S1 and S2. No murmurs, rubs, or gallops appreciated. Pulmonary: Normal respiratory effort. No rhonchi, rales, or wheezing appreciated. Gastrointestinal: Soft. Nontender. Nondistended. Positive bowel sounds all 4 quadrants. No guarding. Musculoskeletal: Moves all extremities. No calf tenderness. No edema appre ciated. Central nervous system: AAO x 3, CN 2-12 grossly intact. 5/5 muscle strength all extremities. Dermatologic: Skin warm and dry. Assessment and plan: Patient is a 67-year-old male with past medical history significant for hypertension, coronary artery disease status post stent placement, type 2 diabetes, pelvic fracture, urinary retention, and glaucoma that presented to the emergency room with lightheadedness. 1. Presyncope. Likely secondary to orthostatic hypotension. Patient hypotensive on admission. Placed on IV fluids. Recheck orthostatics. All home blood pressure medications held. Cardiology consulted, follow up recommendations. Patient was also found to have veterbrobasilar insufficiency at last admission which also may be contributing. Statin and ASA were recommended by neurologist at last admission. Head CT per radiologist shows no acute intracranial findings. 2. Cervical radiculopathy. Continue home gabapentin. Patient to follow up with neurologist as an outpatient. 3. CAD. No acute issues. Continue aspirin, Plavix, and Lipitor. Home metoprolol and lisinopril held for now. 4. Essential hypertension. Home metoprolol and lisinopril held for now. Patient hypotensive on admission. 5. DM2. Placed on insulin sliding scale. Monitor accuchecks. 6. History of urinary retention. Flomax held for now secondary to orthostatic hypotension. 7. Depression. Continue Lexapro 8. DVT prophylaxis. Lovenox 9. Patient is a full code Case was discussed in detail with the patient regarding current diagnosis and treatment plan. All questions answered.
[2018-07-20] MEDS: Sodium Chloride 0.9% 1,000 ML IV SCH (16:07)
[2018-07-20] MEDS: Insulin Reg-HIGH-Coverage SC SCH ×2 (17:09→21:38)
[2018-07-20 17:41] VITALS: O2SAT 96
--- NOTE | 2018-07-20 21:01 | CARD ---
APPROVED REPORT Date of service: 07/20/2018 EKG Measurement Heart [id number] <Conclusion> Normal sinus rhythm Possible Left atrial enlargement Left ventricular hypertrophy Nonspecific T wave abnormality Abnormal ECG
[2018-07-21] MEDS: Sodium Chloride 0.9% 1,000 ML IV SCH ×2 (01:45→14:30)
[2018-07-21] MEDS ORDERED: Pantoprazole 40 mg EC Tab PO SCH (06:00)
[2018-07-21 07:04] LABS: BASO # 0.01 K/mm3 (0.0-2.0); BASO % 0.2 % (0.0-3.0); EOS # 0.1 (0.0-0.7); HEMOGLOBIN 11.7 g/dL (14.0-18.0); LYMPH # 2.6 (1.2-3.4); LYMPH % 41.4 % (22.0-35.0); MEAN CELL VOLUME 85.5 fl (80.0-105.0); MEAN CORPUSCULAR HEMOGLOBIN 27.9 pg (25.0-35.0); MEAN CORPUSCULAR HGB CONC 32.6 g/dl (31.0-37.0); MEAN PLATELET VOLUME 9.7 fl (7.0-11.0); MONO # 0.6 (0.1-0.6); MONO % 8.8 % (1.0-6.0); RBC 4.2 10^6/uL (3.5-6.1); RED CELL DISTRIBUTION WIDTH 15.6 % (11.5-14.5); WHITE BLOOD COUNT 6.2 10^3/uL (4.5-11.0)
[2018-07-21 07:17] LABS: ALB/GLOB RATIO 0.9 (1.1-1.8); ALBUMIN 3.1 g/dL (3.0-4.8); ALT/SGPT 24 U/L (7-56); AST/SGOT 32 U/L (17-59); BLOOD UREA NITROGEN 12 mg/dL (7-21); CALCIUM 8.6 mg/dL (8.4-10.5); GFR NON-AFRICAN AMERICAN > 60
[2018-07-21] MEDS: Insulin Reg-HIGH-Coverage SC SCH ×4 (08:09→21:43)
[2018-07-21 08:15] VITALS: RESP 20
[2018-07-21] MEDS: Enoxaparin 40 mg Syringe SC SCH (09:27)
[2018-07-21] MEDS: Metoprolol Succinate 50 mg XL Tab PO SCH (09:28)
--- NOTE | 2018-07-21 13:26 | CP.PCM.PN ---
<Cory Truong - Last Filed: 07/21/18 13:27> Subjective - Date & Time of Evaluation Date of Evaluation: 07/21/18 Time of Evaluation: 08:00 - Subjective Subjective: Cory Truong PGY-1 Progress Note for Hospitalist Service Patient seen and evaluated at bedside. No acute events reported overnight. Patient lying in bed and reports chronic headache and chronic full body burning but denies dizziness, chest pain, palpitations, shortness of breath, confusion, dysuria, blurry vision. Objective - Vital Signs/Intake and Output Vital Signs (last 24 hours): Temp Pulse Resp BP Pulse Ox 98.2 F 92 H 20 152/87 H 96 07/21/18 08:14 07/21/18 09:28 07/21/18 08:14 07/21/18 09:28 07/21/18 08:14 Intake and Output: 07/21/18 07/21/18 06:59 18:59 Intake Total 1320 Output Total 800 Balance 520 - Medications Medications: Current Medications Aspirin (Ecotrin) 81 mg PO DAILY [facility] Last Admin: 07/21/18 09:27 Dose: 81 mg Atorvastatin Calcium (Lipitor) 80 mg PO DAILY [facility] Last Admin: 07/21/18 09:28 Dose: 80 mg Clopidogrel Bisulfate (Plavix) 75 mg PO DAILY [facility] Last Admin: 07/21/18 09:27 Dose: 75 mg Enoxaparin Sodium (Lovenox) 40 mg SC DAILY [facility]; Protocol Last Admin: 07/21/18 09:27 Dose: 40 mg Escitalopram Oxalate (Lexapro) 10 mg PO HS [facility] Last Admin: 07/20/18 21:39 Dose: 10 mg Gabapentin (Neurontin) 300 mg PO TID [facility]; Protocol Last Admin: 07/21/18 09:27 Dose: 300 mg Sodium Chloride (Sodium Chloride 0.9%) 1,000 mls @ 100 mls/hr IV .Q10H [facility] Last Admin: 07/21/18 01:45 Dose: 100 mls/hr Insulin Human Regular (Humulin R High) 0 units SC ACHS [facility]; Protocol Last Admin: 07/21/18 12:25 Dose: 1 unit Metoprolol Succinate (Toprol Xl) 50 mg PO DAILY [facility] Last Admin: 07/21/18 09:28 Dose: 50 mg - Labs Labs: 07/21/18 06:10 03/20/19 06:10 - Additional Findings Additional findings: - Constitutional Appears: Non-toxic, No Acute Distress - Head Exam Head Exam: ATRAUMATIC, NORMOCEPHALIC - Eye Exam Eye Exam: EOMI, PERRL Additional comments: bilateral cataracts. No nystagmus - ENT Exam ENT Exam: Mucous Membranes Moist - Neck Exam Neck exam: Positive for: Normal Inspection - Respiratory Exam Respiratory Exam: Clear to Auscultation Bilateral, NORMAL BREATHING PATTERN. absent: Decreased Breath Sounds, Rales, Rhonchi, Wheezes, Respiratory Distress - Cardiovascular Exam Cardiovascular Exam: REGULAR RHYTHM, +S1, +S2. Chest wall TTP. absent: Tachycardia - GI/Abdominal Exam GI & Abdominal Exam: Normal Bowel Sounds, Soft. absent: Distended, Firm, Rebound, Rigid, Tenderness - Extremities Exam Extremities exam: Positive for: normal capillary refill, pedal pulses present. Negative for: pedal edema, tenderness - Neurological Exam Neurological exam: Alert, CN II-XII Intact, Oriented x3 Additional comments: Muscle strength intact UE and LE b/l - Psychiatric Exam Psychiatric exam: Normal Affect, Normal Mood - Skin Skin Exam: Dry, Intact, Normal Color Assessment and Plan - Assessment and Plan (Free Text) Assessment: Patient is a 67 year old male with past medical history of HTN, CAD s/p stent placement, T2DM, pelvic fracture, urinary retention, glaucoma presenting with chief complaint of dizziness, feeling faint. Plan: Lightheadedness - Repeat Orthostatics positive x2; documented positive result on previous admission - CXR unremarkable - Head CT unremarkable - PT eval recommending [facility] vs [facility] CAD - Hx of CAD and T2DM - Troponin neg x 2 - EKG shows NSR - TSH WNL - Recent Echo shows EF 51 % with dilated LA and mildly concentric LVH one week ago - c/w ASA, Plavix, and Lipitor - Cardiology consulted - Dr. Sharma - recs appreciated. Will consider adding Midodrine HTN - hold home HCTZ and Lisinopril due to periods of hypotension. Continue B- brett T2DM with neuropathy - diabetic education - c/w home Neurontin - ISS, Accuchecks Urinary retention - C/w home Flomax Glaucoma - will request family to bring in eyedrops per patient request GI/DVT ppx - Protonix/compression stockings Remote tele D Patient seen, case reviewed and plan approved by Dr. Grijalva. Cory Truong, PGY-1 <Jung Grijalva - Last Filed: 07/21/18 15:34> Objective - Vital Signs/Intake and Output Vital Signs (last 24 hours): Temp Pulse Resp BP Pulse Ox 98.2 F 92 H 20 152/87 H 96 07/21/18 08:14 07/21/18 09:28 07/21/18 08:14 07/21/18 09:28 07/21/18 08:14 Intake and Output: 07/21/18 07/21/18 06:59 18:59 Intake Total 1320 Output Total 800 Balance 520 - Medications Medications: Current Medications Aspirin (Ecotrin) 81 mg PO DAILY [facility] Last Admin: 07/21/18 09:27 Dose: 81 mg Atorvastatin Calcium (Lipitor) 80 mg PO DAILY [facility] Last Admin: 07/21/18 09:28 Dose: 80 mg Clopidogrel Bisulfate (Plavix) 75 mg PO DAILY [facility] Last Admin: 07/21/18 09:27 Dose: 75 mg Enoxaparin Sodium (Lovenox) 40 mg SC DAILY [facility]; Protocol Last Admin: 07/21/18 09:27 Dose: 40 mg Escitalopram Oxalate (Lexapro) 10 mg PO HS [facility] Last Admin: 07/20/18 21:39 Dose: 10 mg Gabapentin (Neurontin) 300 mg PO TID [facility]; Protocol Last Admin: 07/21/18 14:26 Dose: 300 mg Sodium Chloride (Sodium Chloride 0.9%) 1,000 mls @ 100 mls/hr IV .Q10H [facility] Last Admin: 07/21/18 14:30 Dose: 100 mls/hr Insulin Human Regular (Humulin R High) 0 units SC ACHS [facility]; Protocol Last Admin: 07/21/18 12:25 Dose: 1 unit Metoprolol Succinate (Toprol Xl) 50 mg PO DAILY [facility] Last Admin: 07/21/18 09:28 Dose: 50 mg Tamsulosin HCl (Flomax) 0.4 mg PO DAILY [facility] - Labs Labs: 07/21/18 06:10 07/21/18 06:10 Attending/Attestation - Attestation I have personally seen and examined this patient.: Yes I have fully participated in the care of the patient.: Yes I have reviewed all pertinent clinical information, including history, physical exam and plan: Yes Notes (Text): 07/21/18 15:25 67 year old male with past medical history of CAD s/p stent, hypertension, diabetes, pelvis fracture, urinary retention, and glaucoma who presented with complaint of lightheadedness and presyncopal episode while at the [employer] yesterday. He was found to have orthostatic yesterday. Recent admission was for similar episode and he was found to have orthostatic hypotension and verterobasilar insufficiency. He was told to hold his HCTZ which is still on hold and he is started on IVF. Today he is again orthostatic. Will hold lisinopril. Consider florinef tomorrow if still orthostatic. He is not a candidate for midrodine due to history of BPH/urinary retention and CAD. Cardiology evaluation was appreciated. PT evaluation was appreciated as well who recommended home with services vs [facility]. Jung Grijalva MD Hospitalist.
--- NOTE | 2018-07-21 16:07 | CON ---
DATE OF CONSULTATION: 07/21/2018 REQUESTING PHYSICIAN: Dr. Wisdom. REASON FOR CONSULTATION: Dizziness and known coronary artery disease. HISTORY: This is a 67-year-old man known to me from prior admission and a recent hospitalization, who presented to the emergency room with complaints of dizziness and weakness. He was being seen by the assisted living coordinator when he felt lightheaded upon rising from the exam chair. His symptoms persisted. He felt tingling, numbness, and a warm sensation throughout his body and became concerned. He was brought to the emergency room and admitted. He states he has not been compliant with his medications recently. He had been admitted several weeks ago with similar symptoms, and his diuretic therapy was withheld. He denied any chest pain or any dyspnea. PAST MEDICAL HISTORY: His past history is notable for non-ST segment elevation myocardial fraction 2 years ago, and stenting of his LAD was performed at that time. He has not had a followup stress testing or medical followup for this. He has a history of hypertension, diabetes, urinary retention in the past, pelvic fracture, and glaucoma. ALLERGIES: NONE. CURRENT MEDICATIONS: Include Ecotrin, Lexapro, Lipitor, Lovenox, Neurontin, Plavix, Toprol-XL and Zestril. SOCIAL HISTORY: He does not smoke. Denies alcohol use. FAMILY HISTORY: Unremarkable for premature heart disease. REVIEW OF SYSTEMS: Ten-point review of systems is otherwise unremarkable. PHYSICAL EXAMINATION: GENERAL: He is a middle-aged man, who appears comfortable at rest. VITAL SIGNS: His blood pressure is 150/86 with a pulse of 90, respirations are 16. He is afebrile. HEENT: Head, normocephalic, atraumatic. Marked halitosis is present. NECK: Supple. No JVD noted. CHEST: Few scattered rhonchi heard. HEART: PMI in normal position. No pathological murmurs or gallops noted. ABDOMEN: Soft, nontender with normoactive bowel sounds. EXTREMITIES: No clubbing, cyanosis or edema. SKIN: Warm and dry. PSYCHIATRIC: Normal mood and affect. NEUROLOGIC: Alert and oriented x3. No gross motor or sensory deficits noted. DIAGNOSTIC DATA: Potassium 4.3, BUN and creatinine are 12 and 0.9. White count 6.2, hemoglobin and hematocrit are 11.7 and 35.9 with a platelet count of 275,000. Three sets cardiac enzymes are negative. Electrocardiogram reveals sinus rhythm with LVH and left atrial abnormality, nonspecific abnormalities. Chest x-ray reveals normal cardiac silhouette with clear lung carvalho. IMPRESSION: 1. Transient dizziness, possibly related to postural hypotension. Diuretic therapy had been previously discontinued. 2. Coronary artery disease, status post remote myocardial fraction and percutaneous coronary intervention. 3. Variable compliance with medication. 4. Rest of problems as noted. RECOMMENDATIONS: KANDACE inhibitor therapy can be discontinued at this time. Beta-brett therapy should continue for now. Adequate hydration was encouraged. The use of compression stockings may be beneficial. The addition of midodrine to his regimen may need to be considered. The need for regular followup and an eventual outpatient stress test has been discussed. Thank you for this consultation, and I will be happy to follow along as needed. Bertram Sharma MD
[2018-07-22] MEDS: Sodium Chloride 0.9% 1,000 ML IV SCH (00:14)
[2018-07-22] MEDS: Metoprolol Succinate 50 mg XL Tab PO SCH ×2 (05:56→09:59)
[2018-07-22 05:58] VITALS: BP 172/76; PULSE 70
[2018-07-22 06:29] LABS: BASO # 0.03 K/mm3 (0.0-2.0); BASO % 0.6 % (0.0-3.0); EOS # 0.1 (0.0-0.7); EOS % 1.5 % (1.5-5.0); HEMOGLOBIN 11.3 g/dL (14.0-18.0); LYMPH # 2.5 (1.2-3.4); LYMPH % 46.9 % (22.0-35.0); MEAN CELL VOLUME 83.4 fl (80.0-105.0); MEAN CORPUSCULAR HEMOGLOBIN 27.2 pg (25.0-35.0); MEAN CORPUSCULAR HGB CONC 32.7 g/dl (31.0-37.0); MEAN PLATELET VOLUME 9.7 fl (7.0-11.0); MONO # 0.4 (0.1-0.6); MONO % 8.1 % (1.0-6.0); RBC 4.15 10^6/uL (3.5-6.1); RED CELL DISTRIBUTION WIDTH 15.2 % (11.5-14.5); WHITE BLOOD COUNT 5.4 10^3/uL (4.5-11.0)
[2018-07-22 06:53] LABS: ALB/GLOB RATIO 0.8 (1.1-1.8); ALBUMIN 2.8 g/dL (3.0-4.8); ALT/SGPT 15 U/L (7-56); AST/SGOT 23 U/L (17-59); BLOOD UREA NITROGEN 9 mg/dL (7-21); CALCIUM 8.5 mg/dL (8.4-10.5); GFR NON-AFRICAN AMERICAN > 60
[2018-07-22] MEDS: Insulin Reg-HIGH-Coverage SC SCH ×2 (08:00→12:20)
[2018-07-22 08:06] VITALS: TEMP 97.9
[2018-07-22] MEDS: Enoxaparin 40 mg Syringe SC SCH (09:59)
--- NOTE | 2018-07-22 13:12 | CP.PCM.DIS ---
<AlexiCory - Last Filed: 07/22/18 12:54> Provider - Provider Date of Admission: 07/20/18 14:18 Attending physician: Luis Early MD Primary care physician: Dr. Freitas Consults: 07/20/18 14:44 Cardiology Consult Routine Comment: Consulting Provider: Bertram Sharma Consulting Physician: Bertram Sharma Reason for Consult: previous patient, hx CAD, cardiomyopathy 07/20/18 15:02 Diabetic Education Referral Routine Comment: Physician Instructions: Reason For Exam: poor glycemic control 07/20/18 17:18 Social Work Referral Routine Comment: PT with multiple hospital stays Physician Instructions: Reason For Exam: PT with multiple hospitalizations Time Spent in preparation of Discharge (in minutes): 40 Hospital Course - Lab Results Lab Results: Most Recent Lab Values WBC 5.4 10^3/uL (4.5-11.0) 07/22/18 06:15 RBC 4.15 10^6/uL (3.5-6.1) 07/22/18 06:15 Hgb 11.3 g/dL (14.0-18.0) L 07/22/18 06:15 Hct 34.6 % (42.0-52.0) L 07/22/18 06:15 MCV 83.4 fl (80.0-105.0) 07/22/18 06:15 MCH 27.2 pg (25.0-35.0) 07/22/18 06:15 MCHC 32.7 g/dl (31.0-37.0) 07/22/18 06:15 RDW 15.2 % (11.5-14.5) H 07/22/18 06:15 Plt Count 274 10^3/uL (120.0-450.0) 07/22/18 06:15 MPV 9.7 fl (7.0-11.0) 07/22/18 06:15 Neut % (Auto) 42.9 % (50.0-68.0) L 07/22/18 06:15 Lymph % (Auto) 46.9 % (22.0-35.0) H 07/22/18 06:15 Gallia % (Auto) 8.1 % (1.0-6.0) H 07/22/18 06:15 Eos % (Auto) 1.5 % (1.5-5.0) 07/22/18 06:15 Baso % (Auto) 0.6 % (0.0-3.0) 07/22/18 06:15 Lymph # (Auto) 2.5 (1.2-3.4) 07/22/18 06:15 Gallia # (Auto) 0.4 (0.1-0.6) 07/22/18 06:15 Eos # (Auto) 0.1 (0.0-0.7) 07/22/18 06:15 Baso # (Auto) 0.03 K/mm3 (0.0-2.0) 07/22/18 06:15 Absolute Neuts (auto) 2.32 (1.4-6.5) 07/22/18 06:15 Sodium 139 mmol/L (132-148) 07/22/18 06:15 Potassium 4.2 mmol/L (3.6-5.0) 07/22/18 06:15 Chloride 104 mmol/L (98-107) 07/22/18 06:15 Carbon Dioxide 29 mmol/L (21-33) 07/22/18 06:15 Anion Gap 10 (10-20) 07/22/18 06:15 BUN 9 mg/dL (7-21) 07/22/18 06:15 Creatinine 0.8 mg/dl (0.8-1.5) 07/22/18 06:15 Est GFR ( Amer) > 60 07/22/18 06:15 Est GFR (Non-Af Amer) > 60 07/22/18 06:15 POC Glucose (mg/dL) 129 mg/dL (65-110) H 07/22/18 11:07 Random Glucose 106 mg/dL (70-110) 07/22/18 06:15 Calcium 8.5 mg/dL (8.4-10.5) 07/22/18 06:15 Phosphorus 2.8 mg/dL (2.5-4.5) 07/21/18 06:10 Magnesium 1.9 mg/dL (1.7-2.2) 07/21/18 06:10 Total Bilirubin 0.3 mg/dL (0.2-1.3) 07/22/18 06:15 AST 23 U/L (17-59) 07/22/18 06:15 ALT 15 U/L (7-56) 07/22/18 06:15 Alkaline Phosphatase 74 U/L (38-126) 07/22/18 06:15 Total Creatine Kinase 30 U/L (35-230) L 07/20/18 12:37 Troponin I < 0.01 ng/mL 07/21/18 00:45 NT-Pro-B Natriuret Pep 234 pg/mL (0-450) 07/20/18 12:37 Total Protein 6.2 g/dL (5.8-8.3) 07/22/18 06:15 Albumin 2.8 g/dL (3.0-4.8) L 07/22/18 06:15 Globulin 3.4 gm/dL 07/22/18 06:15 Albumin/Globulin Ratio 0.8 (1.1-1.8) L 07/22/18 06:15 Free T4 0.98 ng/dL (0.78-2.19) 07/20/18 12:37 TSH 3rd Generation 3.80 mIU/mL (0.46-4.68) 07/20/18 12:37 Salicylates < 1 mg/dL (2.0-20.0) L 07/20/18 12:37 Acetaminophen < 10.0 ug/ml (10.0-20.0) L 07/20/18 12:37 Alcohol, Quantitative < 10 mg/dL (0-10) 07/20/18 12:37 - Hospital Course Hospital Course: Cory Truong, PGY-1 Discharge Summary for Hospitalist Service Mr. King is a 67-year-old male with past medical history significant for hypertension, coronary artery disease status post stent placement, type 2 diabetes, pelvic fracture, urinary retention, and glaucoma that presented to the emergency room with lightheadedness. Head CT per radiologist shows no acute intracranial findings. For patient's presyncope, which was likely secondary to orthostatic hypotension, patient was placed on IV fluids. Cardiology consult was placed. Orthostatics were ordered and returned positive in all three instances. All home blood pressure medications held except the beta brett per cardiology recs. Cardiology further recommended to hold the KANDACE-inhibitor and follow up for outpatient stress test electively. 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 Statin and aspirin were recommended by neurologist at last admission as well as increase in gabapentin dose. For patient cervical radiculopathy, we continue home gabapentin. Patient was told to follow up with neurologist as an outpatient. For reported CAD, we continued aspirin, Plavix, and Lipitor. Home lisinopril was held. For patient essential hypertension, home metoprolol was continued but lisinopril held as patient was hypotensive on admission. For patient DM2, he was placed on insulin sliding scale and we monitor accuchecks. For history of urinary retention, Flomax was used. For depression, we continued Lexapro. For DVT prophylaxis, Lovenox was used. On day of discharge, patient denied headaches, dizziness, blurry vision, chest pain, palpitations, shortness of breath, abdominal pain, dysuria. Patient and daughter's questions were answered in detail and to their satisfaction. Patient understands need to follow up with PMD, machine container washer and Neurologist within one week and need to stay compliant with medications and increase oral fluid intake. Social work confirmed that physical therapy is set up at home. For further details of hospital stay, please see EMR. Patient seen, case reviewed and plan approved by Dr. Villasenor. Cory Truong, PGY-1 Discharge Exam - Additional Findings Additional findings: - Constitutional Appears: Non-toxic, No Acute Distress - Head Exam Head Exam: ATRAUMATIC, NORMOCEPHALIC - Eye Exam Eye Exam: EOMI, PERRL Additional comments: bilateral cataracts. No nystagmus - ENT Exam ENT Exam: Mucous Membranes Moist - Neck Exam Neck exam: Positive for: Normal Inspection - Respiratory Exam Respiratory Exam: Clear to Auscultation Bilateral, NORMAL BREATHING PATTERN. absent: Decreased Breath Sounds, Rales, Rhonchi, Wheezes, Respiratory Distress - Cardiovascular Exam Cardiovascular Exam: REGULAR RHYTHM, +S1, +S2. Chest wall TTP. absent: Tachycardia - GI/Abdominal Exam GI & Abdominal Exam: Normal Bowel Sounds, Soft. absent: Distended, Firm, Rebound, Rigid, Tenderness - Extremities Exam Extremities exam: Positive for: normal capillary refill, pedal pulses present. Negative for: pedal edema, tenderness - Neurological Exam Neurological exam: Alert, CN II-XII Intact, Oriented x3 Additional comments: Muscle strength intact UE and LE b/l - Psychiatric Exam Psychiatric exam: Normal Affect, Normal Mood - Skin Skin Exam: Dry, Intact, Normal Color Discharge Plan - Discharge Medications Prescriptions: Gabapentin [Neurontin] 600 mg PO TID #42 tab - Follow Up Plan Condition: GOOD Disposition: HOME/ ROUTINE Instructions: Syncope (Fainting) (DC), Dizziness, Nonvertigo, (DC) Additional Instructions: Please continue all medications as prescribed, including your increased dose of Gabapentin. Please discontinue taking your Lisinopril and hydrochlorothiazide until following up with your primary doctor. Please follow up with your primary doctor Dr. Freitas within 3-5 days, please discuss your dizziness with your doctor. Please follow up with Dr. Robertson (neurologist) within 7 days. His contact info is . Please follow up with Dr. Sharma the machine container washer for outpatient stress test within 1-2 weeks. Please increase your oral fluid intake. Please avoid any sudden movements. Rise from bed and chair slowly and pause before arising to avoid dizzy spells. Should symptoms reoccur or you have new any new symptoms, please visit nearest emergency department. Referrals: Bertram Sharma MD [Staff Provider] - Donavon Robertson MD [Staff Provider] - <Luis Early - Last Filed: 07/22/18 17:31> Provider - Provider Date of Admission: 07/20/18 14:18 Attending physician: Luis Early MD Consults: 07/20/18 14:44 Cardiology Consult Routine Comment: Consulting Provider: Bertram Sharma Consulting Physician: Bertram Sharma Reason for Consult: previous patient, hx CAD, cardiomyopathy 07/20/18 15:02 Diabetic Education Referral Routine Comment: Physician Instructions: Reason For Exam: poor glycemic control 07/20/18 17:18 Social Work Referral Routine Comment: PT with multiple hospital stays Physician Instructions: Reason For Exam: PT with multiple hospitalizations Hospital Course - Lab Results Lab Results: Most Recent Lab Values WBC 5.4 10^3/uL (4.5-11.0) 07/22/18 06:15 RBC 4.15 10^6/uL (3.5-6.1) 07/22/18 06:15 Hgb 11.3 g/dL (14.0-18.0) L 07/22/18 06:15 Hct 34.6 % (42.0-52.0) L 07/22/18 06:15 MCV 83.4 fl (80.0-105.0) 07/22/18 06:15 MCH 27.2 pg (25.0-35.0) 07/22/18 06:15 MCHC 32.7 g/dl (31.0-37.0) 07/22/18 06:15 RDW 15.2 % (11.5-14.5) H 07/22/18 06:15 Plt Count 274 10^3/uL (120.0-450.0) 07/22/18 06:15 MPV 9.7 fl (7.0-11.0) 07/22/18 06:15 Neut % (Auto) 42.9 % (50.0-68.0) L 07/22/18 06:15 Lymph % (Auto) 46.9 % (22.0-35.0) H 07/22/18 06:15 Gallia % (Auto) 8.1 % (1.0-6.0) H 07/22/18 06:15 Eos % (Auto) 1.5 % (1.5-5.0) 07/22/18 06:15 Baso % (Auto) 0.6 % (0.0-3.0) 07/22/18 06:15 Lymph # (Auto) 2.5 (1.2-3.4) 07/22/18 06:15 Gallia # (Auto) 0.4 (0.1-0.6) 07/22/18 06:15 Eos # (Auto) 0.1 (0.0-0.7) 07/22/18 06:15 Baso # (Auto) 0.03 K/mm3 (0.0-2.0) 07/22/18 06:15 Absolute Neuts (auto) 2.32 (1.4-6.5) 07/22/18 06:15 Sodium 139 mmol/L (132-148) 07/22/18 06:15 Potassium 4.2 mmol/L (3.6-5.0) 07/22/18 06:15 Chloride 104 mmol/L (98-107) 07/22/18 06:15 Carbon Dioxide 29 mmol/L (21-33) 07/22/18 06:15 Anion Gap 10 (10-20) 07/22/18 06:15 BUN 9 mg/dL (7-21) 07/22/18 06:15 Creatinine 0.8 mg/dl (0.8-1.5) 07/22/18 06:15 Est GFR ( Amer) > 60 07/22/18 06:15 Est GFR (Non-Af Amer) > 60 07/22/18 06:15 POC Glucose (mg/dL) 129 mg/dL (65-110) H 07/22/18 11:07 Random Glucose 106 mg/dL (70-110) 07/22/18 06:15 Calcium 8.5 mg/dL (8.4-10.5) 07/22/18 06:15 Phosphorus 2.8 mg/dL (2.5-4.5) 07/21/18 06:10 Magnesium 1.9 mg/dL (1.7-2.2) 07/21/18 06:10 Total Bilirubin 0.3 mg/dL (0.2-1.3) 07/22/18 06:15 AST 23 U/L (17-59) 07/22/18 06:15 ALT 15 U/L (7-56) 07/22/18 06:15 Alkaline Phosphatase 74 U/L (38-126) 07/22/18 06:15 Total Creatine Kinase 30 U/L (35-230) L 07/20/18 12:37 Troponin I < 0.01 ng/mL 07/21/18 00:45 NT-Pro-B Natriuret Pep 234 pg/mL (0-450) 07/20/18 12:37 Total Protein 6.2 g/dL (5.8-8.3) 07/22/18 06:15 Albumin 2.8 g/dL (3.0-4.8) L 07/22/18 06:15 Globulin 3.4 gm/dL 07/22/18 06:15 Albumin/Globulin Ratio 0.8 (1.1-1.8) L 07/22/18 06:15 Free T4 0.98 ng/dL (0.78-2.19) 07/20/18 12:37 TSH 3rd Generation 3.80 mIU/mL (0.46-4.68) 07/20/18 12:37 Salicylates < 1 mg/dL (2.0-20.0) L 07/20/18 12:37 Acetaminophen < 10.0 ug/ml (10.0-20.0) L 07/20/18 12:37 Alcohol, Quantitative < 10 mg/dL (0-10) 07/20/18 12:37 Attending/Attestation - Attestation I have personally seen and examined this patient.: Yes I have fully participated in the care of the patient.: Yes I have reviewed all pertinent clinical information, including history, physical exam and plan: Yes Notes (Text): 07/22/18 17:26 Attending note; Patient seen and examined with resident. Patient is alert and awake. Denies any dizziness. Chest pain, shortness of breath. Complaining of chronic neuropathy. Blood pressure improved. Orthostatic changes improved. Ambulating without any difficulty. Patient is a 67-year-old male with past medical history significant for hypertension, coronary artery disease status post stent placement, type 2 diabetes, pelvic fracture, urinary retention, and glaucoma that presented to the emergency room with lightheadedness. 1. Presyncope; secondary to orthostatic hypotension. Patient hypotensive on admission. Placed on IV fluids. Blood pressure improved . BP medications on hold . Cardiology evaluation appreciated. Patient will follow up with PMD on Thursday for follow up. adequate hydration recommended . Patient was also found to have veterbrobasilar insufficiency at last admission which also may be contributing. continue Statin and ASA. Head CT shows no acute intracranial findings. 2. Cervical radiculopathy. Continue home gabapentin. dose increased. Advised to follow-up with neurology as outpatient. 3. CAD. Continue aspirin, Plavix, and Lipitor. 4. History of urinary retention. continue home Flomax. 5. Depression. Continue Lexapro Physical therapy evaluation appreciated. Home with services arranged. investment manager evaluation appreciated. Advised to follow-up with PMD/cardiology and neurology. Follow-up with Dr. Luther Turk on thursday.
== END 2018-07-22 15:05 | disposition home or self-care (01) ==
LOC: ED 11:28 → ERH 14:18 → 3RNO 16:50
PROVIDERS: ADMIT Hospitalist; ATTEND Internal Medicine
DX: I95.1 Orthostatic hypotension (principal); I25.10 Atherosclerotic heart disease of native coronary artery without angina pectoris; I10 Essential (primary) hypertension; M54.12 Radiculopathy, cervical region; F32.9 Major depressive disorder, single episode, unspecified; E11.40 Type 2 diabetes mellitus with diabetic neuropathy, unspecified; R33.9 Retention of urine, unspecified; H40.9 Unspecified glaucoma; Z95.5 Presence of coronary angioplasty implant and graft; Z91.14 Patient's other noncompliance with medication regimen
CPT/HCPCS: 36415; 70450; 71045; 80053; 80320; 80329; 82550; 82948; 83735; 83880; 84100; 84439; 84443; 84484; 85025; 93005; 96360; 97162; 97530; 99285; G0378; G8978; G8979; J1650; J7030